=== PATIENT | female | born 1950 | race Caucasian/White ===

== ENCOUNTER 2022-05-11 12:16 | Emergency (ER) | payer MEDICARE, OTHER, SELFPAY ==
[2022-05-11 12:24] VITALS: BP 118/83; PULSE 91; RESP 16; TEMP 36.8; O2SAT 98
--- NOTE | 2022-05-11 12:44 | ED.NURSE ---
Difficult for marketing copywriter to assess regularity of patient's pulse in triage r/t tremors. EKG obtained, NSR with PACs rate 93.
--- NOTE | 2022-05-11 13:17 | ED.GENADULT ---
HPI - General Adult General Time Seen by Provider: 13:17 Date Seen: 05/11/22 Chief complaint: Fall/Minor Trauma Stated complaint: Fell, spasms since Time Seen by Provider: 05/11/22 13:05 Source: patient, family and RN notes reviewed Mode of arrival: ambulatory Limitations: no limitations History of Present Illness HPI narrative: Patient is a 71-year-old female that resides in the [facility] in the memory care unit. She reportedly has dementia, her family member whom I believe is her son that is with her is not sure if it is Lewy body or exactly what the underlying causative diagnosis is. She is on Aricept fluoxetine, Namenda, mirtazapine, Seroquel, trazodone amongst other medicines. They have noticed shaking today, increased falling. Her son reports that they thought she should come over and just get checked out. They have not noted any fevers or chills. She did not reportedly injure anything and has no complaints of pain. She is wanting to know why it is taking so long and is hungry and, wants to eat. She is notably having tremors in her upper extremities bilaterally. Her son is not aware of any movement disorder diagnosis, nothing like Parkinson's. Related Data Home Medications Medication Instructions Recorded Confirmed acetaminophen 500 mg capsule 1,000 mg PO TID PRN 05/11/22 05/11/22 aluminum-mag hydroxide-simethicone 15 ml PO Q4H 05/11/22 05/11/22 200 mg-200 mg-20 mg/5 mL oral susp (Advanced Antacid-Antigas) cetirizine 5 mg tablet 5 mg PO DAILY 05/11/22 05/11/22 clobetasol 0.05 % topical ointment 1 applic topical 05/11/22 05/11/22 donepezil 5 mg tablet 5 mg PO DAILY 05/11/22 05/11/22 fluoxetine 20 mg capsule 20 mg PO DAILY 05/11/22 05/11/22 memantine 10 mg tablet 10 mg PO DAILY 05/11/22 05/11/22 mirtazapine 45 mg tablet 45 mg PO HS 05/11/22 05/11/22 omeprazole 20 mg capsule,delayed 20 mg PO DAILY 05/11/22 05/11/22 release ondansetron 4 mg disintegrating 4 mg PO DAILY 05/11/22 05/11/22 tablet ondansetron HCl 4 mg tablet 4 mg PO DAILY 05/11/22 05/11/22 quetiapine 25 mg tablet 25 mg PO BID 05/11/22 05/11/22 sennosides 8.6 mg-docusate sodium 1 tab-cap PO BID PRN 05/11/22 05/11/22 50 mg tablet (Senna Plus) trazodone 50 mg tablet 50 mg PO HS 05/11/22 05/11/22 zinc oxide 13 % topical cream 1 applic topical DAILY PRN 05/11/22 05/11/22 (Desitin Rapid Relief) Previous Rx's Medication Instructions Recorded cephalexin 500 mg tablet 500 mg PO BID #10 tabs 05/11/22 Allergies Allergy/AdvReac Type Severity Reaction Status Date / Time No Known Drug Allergies Allergy Verified 05/11/22 12:30 Review of Systems Narrative: On questioning, she is negative for HEENT pulmonary cardiovascular GI muscular neurologic and psychiatric but does have some dementia. She seems to be reliable enough to tell me though that nothing is bothering her currently. PFSH PFS Social History Smoking Status: Never smoker Do you use any of these nicotine containing products: None Second hand tobacco smoke exposure: No How often do you have a drink containing alcohol: never How often do you have six or more drinks on one occasion: Never AUDIT-C Alcohol total score: 0 Non-prescribed substance use: denies use service: No Exam Const: Vital Signs, click to edit/add: Vital Signs - 24 hr 05/11/22 12:24 Temperature 98.2 F Pulse Rate [Pulse Oximeter] 91 Respiratory Rate 16 Blood Pressure [Ri ght Upper Arm] 118/83 Pulse Oximetry 98 Oxygen Delivery Me thod Room Air Documenting provider has reviewed patient's vital signs: yes Common normals: no apparent distress, oriented x3, no limitations, healthy appearing and alert (Sitting on the edge of the ER bed.) General appearance: cooperative, comfortable and well kempt HENMT: Common normals: normocephalic, head/scalp atraumatic, hearing grossly normal bilaterally, external ears normal, EAC's normal, TM's normal bilaterally, external nose normal, nasal mucous membranes and turbinates normal, moist oral mucous membranes, oropharynx normal, dentition normal and gingiva normal Head and scalp: normocephalic and atraumatic Nose: external nose normal and nasal mucous membranes and turbinates normal External ear: external ears normal External auditory canal: EAC's normal Tympanic membrane: TM's normal bilaterally Eye: Common normals: PERRL, EOMs intact bilaterally, conjunctivae normal and no scleral icterus Conjunctiva: conjunctiva(e) normal Pupil: PERRL Neck & C-Spine: Common normals: full ROM, no lymphadenopathy, supple and no meningeal signs Resp: Common normals: normal respiratory effort, no retractions, no use of accessory muscles and clear to auscultation bilaterally Auscultation: clear to auscultation bilaterally Cardio: Common normals: regular rate, regular rhythm, S1 normal heart sound, S2 normal heart sound, no gallops, no clicks and no murmurs Rate: regular rate Rhythm: regular rhythm Heart sounds: S1 normal and S2 normal GI: Common normals: Normal to inspection, nondistended, normoactive bowel sounds present, soft to palpation, non-tender and no hepatosplenomegaly Palpation: soft and no hepatosplenomegaly Neuro: Common normals: oriented x3, CN's II-XII intact bilaterally (Do have to ask her twice to follow commands), moves all extremities, no focal motor deficits and no sensory deficits noted Sensorium/orientation: alert (Sitting on the edge of the ER bed.) Meningeal signs: no meningeal signs Other: Has intermittent bilateral upper extremity resting tremors. I do not note any fasciculations. Do feel cogwheeling rigidity of both of her upper extremities. Do not note any head tremors at this time. Psych: Appearance: well kempt Course Course Hospital Course: Clinically, would aim seen looks to be a neurologic process. They are not representing any significant traumatic change. I have reviewed with her son that movement disorders can increase the risk of falls. Ultimately I think she needs a neurology evaluation. I did ask if she had ever carried a diagnosis of Lewy body dementia but he has no idea. The low blood pressure that was reported earlier it is not here and I really do not see any focal signs of infection but will get some lab work. He is not sure that she can provide a urinalysis as she did just urinate. We could always have her care facility obtain a urinalysis later if she cannot provide 1 here. Reevaluation(s) Reevaluation #1: Patient is wanting to get back to [facility]. Her CBC looks reassuring. Her basic metabolic panel as run on the I-STAT cartridge is without any concerning abnormality. Her electrolytes look good. There where that the urinalysis is not back but should come back abnormal we will certainly contact someone over there and guide therapy. We will allow her to go back to her assisted living at this time. Her son has no further questions. I do not think we need to do any neuro imaging due to trauma. 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 Time: 14:45 Reevaluation #2: Left nursing staff call the [facility] to notify them that we are going to initiate antibiotics for probable UTI. Will make sure urine culture gets done. Time: 15:37 Vital Signs Vital signs: Initial Vital Signs Temperature 98.2 F 05/11/22 12:24 Temperature Source Temporal Artery Scan 05/11/22 12:24 Pulse Rate 91 05/11/22 12:24 Respiratory Rate 16 05/11/22 12:24 Blood Pressure 118/83 05/11/22 12:24 Blood Pressure Mean 94 05/11/22 12:24 Blood Pressure Position Sitting 05/11/22 12:24 Pulse Oximetry 98 05/11/22 12:24 Oxygen Delivery Method 05/11/22 12:24 Vital Signs Temperature 98.2 F 05/11/22 12:24 Pulse Rate 91 05/11/22 12:24 Respiratory Rate 16 05/11/22 12:24 Blood Pressure 118/83 05/11/22 12:24 Pulse Oximetry 98 05/11/22 12:24 Oxygen Delivery Method 05/11/22 12:24 Temperature 98.2 F 05/11/22 12:24 Pulse Rate 91 05/11/22 12:24 Respiratory Rate 16 05/11/22 12:24 Blood Pressure 118/83 05/11/22 12:24 Pulse Oximetry 98 05/11/22 12:24 Oxygen Delivery Method 05/11/22 12:24 Medical Decision Making Lab Data Lab results reviewed: Yes I reviewed the patient's lab results Labs: Lab Results 05/11/22 05/11/22 05/11/22 Range/Units 13:58 13:58 14:29 WBC 8.93 (4.50-11.00) K/uL RBC 5.13 (4.00-5.20) m/uL Hgb 15.4 (12.0-16.0) gm/dL Hct 47.9 (33.0-51.0) % MCV 93 (80-100) fL MCH 30 (26-34) pg MCHC 32 (32-36) gm/dL RDW Coeff of [place] 11.8 (11.5-15.5) % Plt Count 170 (140-440) K/uL Neut % (Auto) 83.7 H (42.0-72.0) % Lymph % (Auto) 10.5 L (20-44) % [place] % (Auto) 4.9 (0.0-11.0) % Eos % (Auto) 0.4 (0.0-7.0) % Baso % (Auto) 0.3 (0.0-3.0) % Neut # (Auto) 7.50 H (1.7-7.0) K/uL Lymph # (Auto) 0.90 (0.90-2.90) K/uL [place] # (Auto) 0.40 (0.00-0.90) K/UL Eos # (Auto) 0.04 (0.00-0.50) K/uL Baso # (Auto) 0.03 (0.00-0.30) K/uL Abs Immat Gran (auto) 0.02 (0.00-0.30) K/uL Sodium 140 (135-149) mmol/L Potassium 4.1 (3.6-5.1) mmol/L Chloride 106 (96-114) mmol/L Carbon Dioxide 22 (20-32) mmol/L BUN 26 (7-30) mg/dL Creatinine 1.0 (0.5-1.5) mg/dL Estimated GFR 61 ml/min Glucose 97 (60-115) mg/dL Calcium 9.0 (8.4-10.6) mg/dL Total Bilirubin 0.4 (0.1-1.5) mg/dL AST 36 H (12-35) U/L ALT 17 (4-35) U/L Alkaline Phosphatase 170 H (40-150) U/L Total Protein 8.5 H (6.0-8.3) g/dL Albumin 4.4 (3.3-5.0) g/dL Urine Color Yellow (Yellow) Urine Appearance Cloudy A (Clear) Urine pH 6.5 (5.0-8.5) Ur Specific [place] 1.010 (1.000-1.030) Urine Protein Negative (Negative) Urine Glucose (UA) Negative (Negative) Urine Ketones Negative (Negative) Urine Blood 1+ A (Negative) Urine Nitrite Negative (Negative) Urine Bilirubin Negative (Negative) Urine Urobilinogen 0.2 (0.2-1.0) Ur Leukocyte Esterase 3+ A (Negative) Urine RBC 0-2 (0-2) Urine WBC 25-50 A (0-5) Ur Squamous Epith Cells None (None-Few) Urine Bacteria Many A (None) ECG Data Attestation: I personally reviewed and interpreted this ECG as follows: (Sinus rhythm, 93 beats per minute, Pac.) Prior ECG tracings: not available for review Critical Care Time Critical Care Time Critical Care Time: No Discharge Plan Discharge Clinical Impression: Resting tremor, Fall Condition: Stable Instructions: Fall Prevention for Older Adults (ED), Tremors (ED) Additional Instructions: I also noted some cogwheeling rigidity on physical examination. Thus with the resting tremors I am seeing and the rigidity on examination of upper extremities, do highly recommend consultation with neurology. You can go through your primary care provider to get a referral. We will contact you if there is anything concerning on the urinalysis. You will need to see Neurology for further workup of the tremors and concerns with the neurologic status. I do not believe this to be manifestations of any infectious etiology, believe there to be underlying neurologic changes of a probable movement disorder or some type of dementia where there can be these types of manifestations. However, should you develop a fever, have a specific symptom that is concerning for an infection, please seek re-evaluation Activity Level: Activity as Tolerated Prescriptions: New cephalexin 500 mg tablet 500 mg PO BID Qty: 10 0RF Rx Instructions: can sub covered equivalent or generic No Action acetaminophen 500 mg capsule 1,000 mg PO TID PRN Label Comments: Take 2 capsule by mouth three times a day as needed for pain , Max: 4g APAP/24hrs donepezil 5 mg tablet 5 mg PO DAILY cetirizine 5 mg tablet 5 mg PO DAILY clobetasol 0.05 % ointment 1 applic TOPICAL HS Desitin Rapid Relief 13 % cream 1 applic topical DAILY PRN fluoxetine 20 mg capsule 20 mg PO DAILY mirtazapine 45 mg tablet 45 mg PO HS alum-mag hydroxide-simeth [Advanced Antacid-Antigas] 200-200-20 mg/5 mL suspension 15 ml PO Q4H memantine 10 mg tablet 10 mg PO DAILY omeprazole 20 mg capsule,delayed release(DR/EC) 20 mg PO DAILY sennosides-docusate sodium [Senna Plus] 8.6-50 mg tablet 1 tab-cap PO BID PRN Label Comments: Take 1 tablet by mouth twice a day as needed quetiapine 25 mg tablet 25 mg PO BID Label Comments: takes 25mg BID and 25mg PO PRN anxiety trazodone 50 mg tablet 50 mg PO HS ondansetron HCl 4 mg tablet 4 mg PO DAILY ondansetron 4 mg tablet,disintegrating 4 mg PO DAILY Label Comments: 4mg po Daily at breakfast and 4mg po prn nausea Stand Alone Forms: [facility] Info Instructions
[2022-05-11 14:18] LABS: Basophils Absolute Auto 0.03 K/uL (0.00-0.30); Basophils Percent Auto 0.3 % (0.0-3.0); Eosinophils Absolute Auto 0.04 K/uL (0.00-0.50); Eosinophils Percent Auto 0.4 % (0.0-7.0); Hematocrit 47.9 % (33.0-51.0); Hemoglobin* 15.4 gm/dL (12.0-16.0); Immature Granulocytes Abs Auto 0.02 K/uL (0.00-0.30); Lymphocytes Percent Auto 10.5 % (20-44); Mean Corpuscular HGB Conc 32 gm/dL (32-36); Mean Corpuscular Hemoglobin 30 pg (26-34); Mean Corpuscular Volume 93 fL (80-100); Monocytes Percent Auto 4.9 % (0.0-11.0); Neutrophils Percent Auto 83.7 % (42.0-72.0); Platelet Count* 170 K/uL (140-440); RDW Coefficient of Variation % 11.8 % (11.5-15.5); Red Blood Count 5.13 m/uL (4.00-5.20); White Blood Count* 8.93 K/uL (4.50-11.00)
[2022-05-11 14:20] LABS: Slide Review Reflex No
[2022-05-11 14:40] LABS: Appearance Urine Cloudy (Clear); Bilirubin Urine Negative (Negative); Blood Urine 1+ (Negative); Color Urine Yellow (Yellow); Glucose Urine Negative (Negative); Ketones Urine Negative (Negative); Leukocyte Esterase Urine 3+ (Negative); Nitrite Urine Negative (Negative); Protein Urine Negative (Negative); Urobilinogen Urine 0.2 (0.2-1.0); pH Urine 6.5 (5.0-8.5)
[2022-05-11 15:08] LABS: Bacteria Urine Many; RBC Urine 0-2 (0-2); WBC Urine 25-50 (0-5)
[2022-05-11 16:28] LABS: Albumin* 4.4 g/dL (3.3-5.0); Chloride* 106 mmol/L (96-114); Sodium* 140 mmol/L (135-149)
[2022-05-11 16:29] LABS: Potassium* 4.1 mmol/L (3.6-5.1)
[2022-05-11 16:31] LABS: Alkaline Phosphatase* 170 U/L (40-150); Aspartate Amino Transferase* 36 U/L (12-35); Bilirubin Total* 0.4 mg/dL (0.1-1.5); Blood Urea Nitrogen* 26 mg/dL (7-30); Carbon Dioxide* 22 mmol/L (20-32); Estimated Glomerular Filt Rate 61 ml/min; Total Protein* 8.5 g/dL (6.0-8.3)
[2022-05-11 16:32] LABS: Alanine Aminotransferase* 17 U/L (4-35); Glucose* 97 mg/dL (60-115)
== END 2022-05-11 15:03 | disposition home or self-care (01) ==
PROVIDERS: Emergency Provider Family Medicine
DX: R25.1 Tremor, unspecified (principal); N39.0 Urinary tract infection, site not specified; B96.1 Klebsiella pneumoniae [K. pneumoniae] as the cause of diseases classified elsewhere; Z91.81 History of falling
CPT/HCPCS: 36415; 80053; 81001; 85025; 87086; 87186; 93005; 99284

== ENCOUNTER 2022-08-01 09:40 | Outpatient (REF) | payer MEDICARE, OTHER, SELFPAY ==
[2022-08-01 10:21] LABS: Chloride* 108 mmol/L (96-114)
[2022-08-01 10:22] LABS: Sodium* 142 mmol/L (135-149)
[2022-08-01 10:24] LABS: Carbon Dioxide* 27 mmol/L (20-32); Creatinine* 0.9 mg/dL (0.5-1.5); Estimated Glomerular Filt Rate 69 ml/min
[2022-08-01 10:25] LABS: Blood Urea Nitrogen* 20 mg/dL (7-30); Calcium* 8.7 mg/dL (8.4-10.6); Glucose* 112 mg/dL (60-115)
== END 2022-08-01 09:41 | disposition home or self-care (01) ==
LOC: NPINS 09:40
PROVIDERS: PCP Family Medicine; Visit Provider Family Medicine
DX: N18.2 Chronic kidney disease, stage 2 (mild) (principal)
CPT/HCPCS: 80048

== ENCOUNTER 2022-10-24 13:44 | Outpatient (CLI) | payer MEDICARE, OTHER, SELFPAY ==
--- NOTE | 2022-10-24 14:00 | CRLHL7_ITS ---
For Patients: As a result of the Century Cures Act, medical imaging exams and procedure reports are released immediately into your electronic medical record. You may view this report before your referring provider. If you have questions, please contact your health care provider. INDICATION: Seizure. TECHNIQUE: Noncontrast CT images acquired through the brain. COMPARISON: None. FINDINGS: Prominence of the ventricles and sulci compatible with mild diffuse cerebral volume loss. No mass effect or midline shift. The hurd-white differentiation is maintained. No acute intracranial hemorrhage or pathologic extra-axial fluid collection. Scattered hypoattenuation in the supratentorial white matter, suggestive of mild chronic microvascular ischemic changes. The globes are symmetric. The calvarium is intact. Hyperostosis frontalis interna. [id number] left maxillary sinus mucosal thickening. There is left maxillary sinus mucoperiosteal wall thickening, compatible with sequela of chronic sinusitis. The mastoid air cells are clear. IMPRESSION: No acute intracranial hemorrhage or mass effect. Please note that all CT scans at this facility use dose modulation, iterative reconstruction, and/or weight-based dosing when appropriate to reduce radiation dose to as low as reasonably achievable. Dictated by Zane Donato MD @ 10/24/2022 3:10:57 PM (Electronically Signed)
== END 2022-10-24 13:45 | disposition home or self-care (01) ==
LOC: CT 13:52
PROVIDERS: PCP Family Medicine; Visit Provider Psychiatry & Neurology Neurology
DX: R56.9 Unspecified convulsions (principal); G25.3 Myoclonus
CPT/HCPCS: 70450

== ENCOUNTER 2022-11-15 15:34 | Outpatient (CLI) | payer MEDICARE, OTHER, SELFPAY | END 2022-11-15 15:35 | disposition home or self-care (01) | PROVIDERS: PCP Family Medicine; Visit Provider Family Medicine | DX: R41.82 Altered mental status, unspecified (principal); F03.90 Unspecified dementia, unspecified severity, without behavioral disturbance, psychotic disturbance, mood disturbance, and anxiety | CPT/HCPCS: A0425; A0429 ==

== ENCOUNTER 2022-11-15 15:56 | Inpatient (IN) | payer MEDICARE, OTHER, SELFPAY ==
[2022-11-15 15:59] VITALS: BP 111/74; PULSE 82; RESP 18; TEMP 37.3; O2SAT 98; BMI 24.2
--- NOTE | 2022-11-15 16:12 | CRLHL7_ITS ---
For Patients: As a result of the Century Cures Act, medical imaging exams and procedure reports are released immediately into your electronic medical record. You may view this report before your referring provider. If you have questions, please contact your health care provider. Indication: Trauma, fall. Technique: AP view of the pelvis. Comparison: None Findings/Impression: Suboptimal evaluation due to positioning. There is subtle cortical irregularity at the left femoral neck, worrisome for a minimally displaced fracture. Bilateral femoral acetabular joint alignments are anatomic. Punctate metallic fragment is noted within the mid pelvis. Dictated by Peyton Mathews MD @ 11/15/2022 5:57:26 PM (Electronically Signed)
--- NOTE | 2022-11-15 16:12 | CRLHL7_ITS ---
For Patients: As a result of the Cures Act, medical imaging exams and procedure reports are released immediately into your electronic medical record. You may view this report before your referring provider. If you have questions, please contact your health care provider. INDICATION: Fall. TECHNIQUE: Chest 1 views. COMPARISON: None. FINDINGS: Cardiovasculature and mediastinum: Heart size and vasculature are normal in caliber and appearance. Lungs and pleural spaces: Lungs are clear except for mild left basilar atelectasis or scarring. No sign of infiltrate or mass. No sign of pleural effusion. No pneumothorax. Bones and soft tissues: No significant findings. IMPRESSION: No acute or significant findings. Dictated by David Montenegro MD @ 11/15/2022 5:57:10 PM (Electronically Signed)
--- NOTE | 2022-11-15 16:12 | CRLHL7_ITS ---
For Patients: As a result of the Century Cures Act, medical imaging exams and procedure reports are released immediately into your electronic medical record. You may view this report before your referring provider. If you have questions, please contact your health care provider. INDICATION: Fall.. TECHNIQUE: CT head without contrast. COMPARISON: None. FINDINGS: CSF spaces: Within normal limits for age. Brain parenchyma and extra-axial spaces: The hurd-white differentiation is normal. No sign of mass, hemorrhage, or midline shift. No extra-axial fluid collection. Skull base and calvarium: The visualized paranasal sinuses and mastoid air cells demonstrate no acute or significant findings. The visualized orbits are grossly unremarkable. No skull fractures. IMPRESSION: No acute intracranial process identified. Please note that all CT scans at this facility use dose modulation, iterative reconstruction, and/or weight-based dosing when appropriate to reduce radiation dose to as low as reasonably achievable. Dictated by Meliton Huynh MD @ 11/15/2022 5:59:59 PM (Electronically Signed)
--- NOTE | 2022-11-15 16:19 | ED_ITS ---
HPI - General Adult General Time Seen by Provider: 16:19 Date Seen: 11/15/22 Chief complaint: Weakness Stated complaint: Ill Time Seen by Provider: 11/15/22 16:02 Source: EMS Mode of arrival: EMS Limitations: altered mental status and physical limitation History of Present Illness HPI narrative: Patient is a 72-year-old female with skew history of significant dementia who lives at Memory Care at [facility]. She apparently fell yesterday and since and has not been weight-bearing, there has been no noted bruising or range of motion deficit patient has been appearing more weak today. There is COVID in her wing of the unit. She has a polst, DNR DNI order. Family wishes limited medical care but assessment and treatment if needed. Apparently the cameron maria isabel wished her to be assessed in the hospital today. She has not had a cough, not had a fever, no vital sign abnormality. The patient is fairly noncommunicative due to her dementia by chart history. Related Data Home Medications Medication Instructions Recorded Confirmed acetaminophen 500 mg capsule 1,000 mg PO TID PRN 05/11/22 11/15/22 aluminum-mag hydroxide-simethicone 15 ml PO Q4H PRN 05/11/22 11/16/22 200 mg-200 mg-20 mg/5 mL oral susp (Advanced Antacid-Antigas) cetirizine 5 mg tablet 5 mg PO DAILY 05/11/22 11/15/22 clobetasol 0.05 % topical ointment 1 applic topical HS 05/11/22 11/15/22 donepezil 5 mg tablet 5 mg PO HS 05/11/22 11/15/22 fluoxetine 20 mg capsule 20 mg PO DAILY 05/11/22 11/15/22 memantine 10 mg tablet 10 mg PO DAILY 05/11/22 11/15/22 mirtazapine 45 mg tablet 45 mg PO HS 05/11/22 11/15/22 omeprazole 20 mg capsule,delayed 20 mg PO BID 05/11/22 11/16/22 release ondansetron 4 mg disintegrating 4 mg PO DAILY 05/11/22 11/15/22 tablet sennosides 8.6 mg-docusate sodium 1 tab-cap PO BID PRN 05/11/22 11/15/22 50 mg tablet (Senna Plus) trazodone 50 mg tablet 25 mg PO HS 05/11/22 11/16/22 zinc oxide 13 % topical cream 1 applic topical BID PRN 05/11/22 11/16/22 (Desitin Rapid Relief) divalproex 250 mg tablet,extended 500 mg PO HS 11/15/22 11/15/22 release 24 hr quetiapine 25 mg tablet 25 mg PO QHS 11/16/22 11/16/22 quetiapine 25 mg tablet 37.5 mg PO DAILY 11/16/22 11/16/22 Allergies Allergy/AdvReac Type Severity Reaction Status Date / Time No Known Drug Allergies Allergy Verified 11/15/22 16:04 Review of Systems Status of ROS: Reports: unobtainable due to medical condition [facility] Medical History (Updated 11/15/22 @ 21:19 by Rios Ríos MD) Alzheimer's dementia with agitation Anxiety Diaper dermatitis Frequent falls GERD (gastroesophageal reflux disease) Lichen sclerosus et atrophicus Mild asthma Rheumatic mitral valve disease Seizure disorder Urticaria Social History (Updated 11/15/22 @ 21:11 by Rios Ríos MD) Narrative: She apparently has not had any previous surgery. There is no history of problems with anesthesia, bleeding or clotting disorder. She lives in the dementia unit at [facility]. She has a daughter, Elizabeth, and a son, Shen, for making decisions. Code status is DNR DNI. She does not smoke. She does not drink alcohol. 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 Highest level of school completed/degree received: don't know Smoking Status: Never smoker Do you use any of these nicotine containing products: None Second hand tobacco smoke exposure: No How often do you have a drink containing alcohol: never How often do you have six or more drinks on one occasion: Never AUDIT-C Alcohol total score: 0 Non-prescribed substance use: denies use service: No Exam Narrative: Exam Narrative: Objective: Patient's vital signs look largely unremarkable, she appears noncyanotic She does not respond verbally, she does Mater some words under her breath. She does not appear in distress. HEENT is unremarkable no facial asymmetry Neck is nontender lungs are clear next heart rhythm regular 2/6 systolic murmur Abdomen benign soft Pelvis stable Able to flex extend her hips without difficulty distal CMS is unremarkable no lower extremities although she does not really respond to asking her to move her legs but she is able to withdraw them and move them. They got good distal CMS as mention. No obvious bruising noted Const: Vital Signs, click to edit/add: Vital Signs - 24 hr 11/15/22 15:59 11/15/22 19:59 Temperature 99.2 F Pulse Rate [Pulse Oximeter] 82 87 Respiratory Rate 18 18 Blood Pressure [Le ft Upper Arm] 111/74 113/73 Pulse Oximetry 98 95 Oxygen Delivery Me thod Room Air Room Air Course Vital Signs Vital signs: Initial Vital Signs Temperature 99.2 F 11/15/22 15:59 Temperature Source Temporal Artery Scan 11/15/22 15:59 Pulse Rate 82 11/15/22 15:59 Pulse Strength 3+ Normal 11/15/22 15:59 Respiratory Rate 18 11/15/22 15:59 Blood Pressure 111/74 11/15/22 15:59 Blood Pressure Mean 86 11/15/22 15:59 Pulse Oximetry 98 11/15/22 15:59 Oxygen Delivery Method 11/15/22 15:59 Vital Signs Temperature 99.2 F 11/15/22 15:59 Pulse Rate 82 11/15/22 15:59 Respiratory Rate 18 11/15/22 15:59 Blood Pressure 111/74 11/15/22 15:59 Pulse Oximetry 98 11/15/22 15:59 Oxygen Delivery Method 11/15/22 15:59 Temperature 98.2 F 11/16/22 03:00 Pulse Rate 76 11/16/22 03:00 Respiratory Rate 18 11/16/22 03:00 Blood Pressure 120/70 11/16/22 03:00 Pulse Oximetry 94 11/16/22 03:00 Oxygen Delivery Method 11/16/22 03:00 Oxygen Flow Rate 2 11/16/22 03:00 Medical Decision Making MDM Narrative Medical decision making narrative: The patient is a 72 year white female with severe dementia currently residing in the memory care unit [facility]. She apparently had a fall yesterday and has been nonambulatory today which she typically is. I think at this point to be reasonable to do x-rays of her pelvis, CT scan of her head, x-ray of her chest, urinalysis, laboratory studies, give her some IV fluid. Disposition pending findings above. With her dementia status it is very difficult to ascertain pain or localizing issues. But I think we can do the above-mentioned workup and that will help guide our treatment. Addendum patient's EKG shows sinus rhythm sinus arrhythmia frequent PVCs nonspecific ST changes, some artifact. The patient has a head CT and chest x-ra y there are largely unremarkable. Pelvis x-ray shows some question of cortical irregularity in the femoral neck by my read, CT scan of the left hip is ordered. Her daughter reports that she tried to move her back into bed earlier in the week 2 days ago and had noted pain in her hip area. She has had multiple falls at the [facility] due to her dementia likely. Will review the CT of the hip. Patient might need admission for hip pinning and orthopedic consult. Addendum: The patient does have an CTA subcapital acute nondisplaced fracture in the left femoral neck. Should be admitted the hospital ortho consult her daughter was consulted and wished to have this assessed. Will discuss with hospitalist Dr. Ríos and also call orthopedics. Addendum: Orthopedics was consulted and they will likely add the patient to the schedule tomorrow, depending on what the hospitalist workup reveals. At this point she is generally quite healthy other than her dementia issues. She does appear to be on any blood thinner. Lab Data Labs: Lab Results 11/15/22 11/15/22 11/15/22 Range/Units 16:04 16:12 16:25 WBC (4.50-11.00) K/uL RBC (4.00-5.20) m/uL Hgb (12.0-16.0) gm/dL Hct (33.0-51.0) % MCV (80-100) fL MCH (26-34) pg MCHC (32-36) gm/dL RDW Coeff of Humble (11.5-15.5) % Plt Count (140-440) K/uL Neut % (Auto) (42.0-72.0) % Lymph % (Auto) (20-44) % Murray % (Auto) (0.0-11.0) % Eos % (Auto) (0.0-7.0) % Baso % (Auto) (0.0-3.0) % Neut # (Auto) (1.7-7.0) K/uL Lymph # (Auto) (0.90-2.90) K/uL Murray # (Auto) (0.00-0.90) K/UL Eos # (Auto) (0.00-0.50) K/uL Baso # (Auto) (0.00-0.30) K/uL Sodium 140 (135-149) mmol/L Potassium 4.0 (3.6-5.1) mmol/L Chloride 108 (96-114) mmol/L Carbon Dioxide 26 (20-32) mmol/L BUN 33 H (7-30) mg/dL Creatinine 0.9 (0.5-1.5) mg/dL Estimated Creat Clear 48.30 Estimated GFR 68 ml/min Glucose 107 (60-115) mg/dL Calcium 8.5 (8.4-10.6) mg/dL Total Bilirubin 0.8 (0.1-1.5) mg/dL Direct Bilirubin 0.1 (0.0-0.5) mg/dL AST 44 H (12-35) U/L ALT 64 H (4-35) U/L Alkaline Phosphatase 94 (40-150) U/L C-Reactive Protein 5.2 H (0.5-1.0) mg/dL Total Protein 7.3 (6.0-8.3) g/dL Albumin 3.8 (3.3-5.0) g/dL Amylase 55 (18-89) U/L Urine Color Yellow (Yellow) Urine Appearance Clear (Clear) Urine pH 7.0 (5.0-8.5) Ur Specific Raymond 1.020 (1.000-1.030) Urine Protein 1+ A (Negative) Urine Glucose (UA) Negative (Negative) Urine Ketones 3+ A (Negative) Urine Blood Trace-intact A (Negative) Urine Nitrite Negative (Negative) Urine Bilirubin 1+ A (Negative) Urine Urobilinogen 4.0 A (0.2-1.0) Ur Leukocyte Esterase Trace A (Negative) Urine RBC 2-5 A (0-2) Urine WBC 2-5 (0-5) Ur Squamous Epith Cells Few (None-Few) Urine Bacteria None (None) SARS-CoV-2 (PCR) Cancelled Influenza Type A (PCR) (Negative) Influenza Type B (PCR) (Negative) RSV (PCR) (Negative) 11/15/22 11/15/22 Range/Units 16:25 17:45 WBC 9.25 (4.50-11.00) K/uL RBC 3.96 L (4.00-5.20) m/uL Hgb 12.4 (12.0-16.0) gm/dL Hct 37.8 (33.0-51.0) % MCV 96 (80-100) fL MCH 31 (26-34) pg MCHC 33 (32-36) gm/dL RDW Coeff of Humble 13.0 (11.5-15.5) % Plt Count 147 (140-440) K/uL Neut % (Auto) 75.9 H (42.0-72.0) % Lymph % (Auto) 12.5 L (20-44) % Murray % (Auto) 8.0 (0.0-11.0) % Eos % (Auto) 3.1 (0.0-7.0) % Baso % (Auto) 0.3 (0.0-3.0) % Neut # (Auto) 7.00 (1.7-7.0) K/uL Lymph # (Auto) 1.20 (0.90-2.90) K/uL Murray # (Auto) 0.70 (0.00-0.90) K/UL Eos # (Auto) 0.29 (0.00-0.50) K/uL Baso # (Auto) 0.03 (0.00-0.30) K/uL Sodium (135-149) mmol/L Potassium (3.6-5.1) mmol/L Chloride (96-114) mmol/L Carbon Dioxide (20-32) mmol/L BUN (7-30) mg/dL Creatinine (0.5-1.5) mg/dL Estimated Creat Clear Estimated GFR ml/min Glucose (60-115) mg/dL Calcium (8.4-10.6) mg/dL Total Bilirubin (0.1-1.5) mg/dL Direct Bilirubin (0.0-0.5) mg/dL AST (12-35) U/L ALT (4-35) U/L Alkaline Phosphatase (40-150) U/L C-Reactive Protein (0.5-1.0) mg/dL Total Protein (6.0-8.3) g/dL Albumin (3.3-5.0) g/dL Amylase (18-89) U/L Urine Color (Yellow) Urine Appearance (Clear) Urine pH (5.0-8.5) Ur Specific Raymond (1.000-1.030) Urine Protein (Negative) Urine Glucose (UA) (Negative) Urine Ketones (Negative) Urine Blood (Negative) Urine Nitrite (Negative) Urine Bilirubin (Negative) Urine Urobilinogen (0.2-1.0) Ur Leukocyte Esterase (Negative) Urine RBC (0-2) Urine WBC (0-5) Ur Squamous Epith Cells (None-Few) Urine Bacteria (None) SARS-CoV-2 (PCR) Negative SARS-CoV-2 Influenza Type A (PCR) Negative PCR FLU A (Negative) Influenza Type B (PCR) Negative PCR FLU B (Negative) RSV (PCR) Negative PCR RSV (Negative) Discharge Plan Discharge Clinical Impression: Weakness, Closed fracture of left hip Patient Disposition: Admitted As Inpatient Condition: Stable
[2022-11-15] MEDS: 0.9 % SODIUM CHLORIDE 500 ML 500 ML IV (16:37)
[2022-11-15 16:50] LABS: Appearance Urine Clear (Clear); Bilirubin Urine 1+ (Negative); Blood Urine Trace-intact (Negative); Color Urine Yellow (Yellow); Glucose Urine Negative (Negative); Ketones Urine 3+ (Negative); Leukocyte Esterase Urine Trace (Negative); Nitrite Urine Negative (Negative); Protein Urine 1+ (Negative)
[2022-11-15 16:56] LABS: Basophils Absolute Auto 0.03 K/uL (0.00-0.30); Basophils Percent Auto 0.3 % (0.0-3.0); Eosinophils Absolute Auto 0.29 K/uL (0.00-0.50); Eosinophils Percent Auto 3.1 % (0.0-7.0); Hematocrit 37.8 % (33.0-51.0); Hemoglobin* 12.4 gm/dL (12.0-16.0); Immature Granulocytes Abs Auto 0.02 K/uL (0.00-0.30); Immature Granulocytes Pct Auto 0.2 %; Lymphocytes Percent Auto 12.5 % (20-44); Mean Corpuscular HGB Conc 33 gm/dL (32-36); Mean Corpuscular Hemoglobin 31 pg (26-34); Mean Corpuscular Volume 96 fL (80-100); Neutrophils Percent Auto 75.9 % (42.0-72.0); Platelet Count* 147 K/uL (140-440); Red Blood Count 3.96 m/uL (4.00-5.20); White Blood Count* 9.25 K/uL (4.50-11.00)
[2022-11-15 17:01] LABS: Slide Review Reflex No
[2022-11-15 17:04] LABS: Squamous Epithelial Cell Urine Few (None-Few)
[2022-11-15 17:15] LABS: Chloride* 108 mmol/L (96-114)
[2022-11-15 17:16] LABS: Albumin* 3.8 g/dL (3.3-5.0); Sodium* 140 mmol/L (135-149)
[2022-11-15 17:19] LABS: Alkaline Phosphatase* 94 U/L (40-150); Amylase* 55 U/L (18-89); Aspartate Amino Transferase* 44 U/L (12-35); Bilirubin Direct* 0.1 mg/dL (0.0-0.5); Bilirubin Total* 0.8 mg/dL (0.1-1.5); Blood Urea Nitrogen* 33 mg/dL (7-30); Carbon Dioxide* 26 mmol/L (20-32); Creatinine* 0.9 mg/dL (0.5-1.5); Estimated Glomerular Filt Rate 68 ml/min; Glucose* 107 mg/dL (60-115); Total Protein* 7.3 g/dL (6.0-8.3)
[2022-11-15 17:20] LABS: Alanine Aminotransferase* 64 U/L (4-35); Calcium* 8.5 mg/dL (8.4-10.6)
[2022-11-15 17:22] LABS: C Reactive Protein* 5.2 mg/dL (0.5-1.0)
--- NOTE | 2022-11-15 17:36 | CRLHL7_ITS ---
For Patients: As a result of the Cures Act, medical imaging exams and procedure reports are released immediately into your electronic medical record. You may view this report before your referring provider. If you have questions, please contact your health care provider. INDICATION: Left hip pain. TECHNIQUE: CT pelvis without contrast. COMPARISON: None. FINDINGS: Bones: A nondisplaced fractures present in the subcapital region of the left femoral neck. This may be acute or subacute. No other osseous abnormality. Joints: Moderate arthritic changes in the hip joint. Soft tissues: Unremarkable. IMPRESSION: Acute or subacute nondisplaced fracture in the subcapital region of the left femoral neck. Please note that all CT scans at this facility use dose modulation, iterative reconstruction, and/or weight-based dosing when appropriate to reduce radiation dose to as low as reasonably achievable. Dictated by David Montenegro MD @ 11/15/2022 7:07:42 PM (Electronically Signed)
--- NOTE | 2022-11-15 17:42 | CRLHL7_ITS ---
For Patients: As a result of the Century Cures Act, medical imaging exams and procedure reports are released immediately into your electronic medical record. You may view this report before your referring provider. If you have questions, please contact your health care provider. INDICATION: Abnormal laboratory tests. TECHNIQUE: CT abdomen and pelvis without contrast. COMPARISON: None. FINDINGS: Lower chest: Moderate bibasilar atelectasis or scarring. Liver: Normal in size and attenuation. No suspicious masses. Gallbladder and bile ducts: No stones or inflammation. No biliary dilatation. Pancreas: Unremarkable. No mass or inflammation. Spleen: Normal in size. No masses. Adrenal glands: Normal in size. No nodules. Kidneys: Normal in size. No suspicious masses, stones, or hydronephrosis. GI tract: Small focal metallic object is within the sigmoid colon. Otherwise unremarkable GI tract. Normal in caliber. No sign of mass or inflammation. Normal appendix. Vasculature: Abdominal aorta is normal in caliber. Lymph nodes: No lymphadenopathy. Peritoneum/Abdominal Wall: Unremarkable. No sign of mass or infiltration. No free air or significant free fluid. Pelvis: Altman catheter within a decompressed bladder. Pelvic structures otherwise unremarkable. Bones: Unremarkable for age. IMPRESSION: 1. Moderate bibasilar scarring or atelectasis in the lung bases. 2. No acute or significant findings in the abdomen or pelvis. Please note that all CT scans at this facility use dose modulation, iterative reconstruction, and/or weight-based dosing when appropriate to reduce radiation dose to as low as reasonably achievable. Dictated by David Montenegro MD @ 11/15/2022 7:03:23 PM (Electronically Signed)
[2022-11-15 18:41] LABS: PCR FLU A Negative PCR FLU A (Negative); PCR FLU B Negative PCR FLU B (Negative); PCR RSV Negative PCR RSV (Negative)
[2022-11-15 18:46] LABS: SARS PCR* Negative SARS-CoV-2 (Negative)
[2022-11-15 19:59] VITALS: BP 113/73; PULSE 87; RESP 18; O2SAT 95
[2022-11-15 20:22] VITALS: BP 102/74; PULSE 80; RESP 18; TEMP 37.1; O2SAT 93; BMI 24.2
[2022-11-15 21:02] VITALS: RESP 18; O2SAT 93
--- NOTE | 2022-11-15 21:04 | PM.IMHP1 ---
Hospitalist- H&P: HPI History of Present Illness Date Seen: 11/15/22 Chief complaint: Ill Narrative: Jessica Angel is a 72 year old female with advanced dementia who fell yesterday and has not been walking since that time. She has been exposed to COVID but has no obvious symptoms and a negative COVID test. Patient is unable to give any history due to dementia. I did obtain some additional information from her daughter Elizabeth by phone. Patient has relatively rapidly progressive dementia. She is still ambulatory until yesterday. She has been having frequent falls and possibly spells for she just falls to the floor. Her neurologist ordered an EEG in August. That apparently showed some possible seizure activity and so she was started on Depakote. Apparently no one has witnessed a generalized tonic-clonic seizure. She also has tremors and shaking which has been getting worse. Review of Systems Narrative: Unable to obtain due to dementia. Daughter is not aware of any new illness or other injury except for the fall yesterday [facility] Medical History (Updated 11/15/22 @ 21:19 by Rios Ríos MD) Alzheimer's dementia with agitation Anxiety Diaper dermatitis Frequent falls GERD (gastroesophageal reflux disease) Lichen sclerosus et atrophicus Mild asthma Rheumatic mitral valve disease Seizure disorder Urticaria Social History (Updated 11/15/22 @ 21:11 by Rios Ríos MD) Narrative: She apparently has not had any previous surgery. There is no history of problems with anesthesia, bleeding or clotting disorder. She lives in the dementia unit at [facility]. She has a daughter, Elizabeth, and a son, Shen, for making decisions. Code status is DNR DNI. She does not smoke. She does not drink alcohol. 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 Smoking Status: Never smoker Do you use any of these nicotine containing products: None Second hand tobacco smoke exposure: No How often do you have a drink containing alcohol: never How often do you have six or more drinks on one occasion: Never AUDIT-C Alcohol total score: 0 Non-prescribed substance use: denies use service: No Meds Home Medications and Allergies Home Medications Medication Instructions Recorded Confirmed Type acetaminophen 500 mg capsule 1,000 mg PO TID PRN 05/11/22 11/15/22 History aluminum-mag hydroxide-simethicone 15 ml PO Q4H 05/11/22 11/15/22 History 200 mg-200 mg-20 mg/5 mL oral susp (Advanced Antacid-Antigas) cetirizine 5 mg tablet 5 mg PO DAILY 05/11/22 11/15/22 History clobetasol 0.05 % topical ointment 1 applic topical HS 05/11/22 11/15/22 History donepezil 5 mg tablet 5 mg PO HS 05/11/22 11/15/22 History fluoxetine 20 mg capsule 20 mg PO DAILY 05/11/22 11/15/22 History memantine 10 mg tablet 10 mg PO DAILY 05/11/22 11/15/22 History mirtazapine 45 mg tablet 45 mg PO HS 05/11/22 11/15/22 History omeprazole 20 mg capsule,delayed 20 mg PO DAILY 05/11/22 11/15/22 History release ondansetron 4 mg disintegrating 4 mg PO DAILY 05/11/22 11/15/22 History tablet ondansetron HCl 4 mg tablet 4 mg PO DAILY 05/11/22 11/15/22 History quetiapine 25 mg tablet 25 mg PO BID 05/11/22 11/15/22 History sennosides 8.6 mg-docusate sodium 1 tab-cap PO BID PRN 05/11/22 11/15/22 History 50 mg tablet (Senna Plus) trazodone 50 mg tablet 50 mg PO HS 05/11/22 11/15/22 History zinc oxide 13 % topical cream 1 applic topical DAILY PRN 05/11/22 11/15/22 History (Desitin Rapid Relief) divalproex 250 mg tablet,extended 500 mg PO HS 11/15/22 11/15/22 History release 24 hr Allergies Allergy/AdvReac Type Severity Reaction Status Date / Time No Known Drug Allergies Allergy Verified 11/15/22 16:04 Exam Narrative: Exam Narrative: She is lying on the gurney sleeping. She does not arouse to voice. She minimally arouses to touch. She is nonverbal. She does not follow commands. Head is without obvious trauma. Eyes are normal. Pupils are equal round and reactive to light. Oropharynx with dry mucous membrane. Neck is without obvious tenderness. Respirations are clear to auscultation. Cardiovascular: S1, S2, regular rate and rhythm. No murmur gallop or rub. Abdomen: Bowel sounds active. Abdomen is soft mild diffuse tenderness. External genitalia normal. Altman catheter in place. Bilateral hips appear relatively normal. Bilateral lower extremities without obvious deformity. She has intact pedal pulses. She does not cooperate with strength testing. She does have myoclonic jerks when I manipulate her bilateral feet and ankle. They had jerks are more prominent on the right than the left. Occasionally exhibits a tremor when I move her feet. No edema. Const: Vital Signs, click to edit/add: Vital Signs - 24 hr 11/15/22 15:59 11/15/22 19:59 11/15/22 21:02 Temperature 99.2 F Pulse Rate [Pulse Oximeter] 82 87 Respiratory Rate 18 18 18 Blood Pressure [Le ft Upper Arm] 111/74 113/73 Pulse Oximetry 98 95 93 Oxygen Delivery Me thod Room Air Room Air Nasal Cannula Oxygen Flow Rate 2 Documenting provider has reviewed patient's vital signs: yes Hospitalist - H&P: Result Labs Labs: Short CBC 11/15/22 Range/Units 16:25 WBC 9.25 (4.50-11.00) K/uL Hgb 12.4 (12.0-16.0) gm/dL Hct 37.8 (33.0-51.0) % Plt Count 147 (140-440) K/uL BMP 11/15/22 16:25 Sodium 140 Potassium 4.0 Chloride 108 Carbon Dioxide 26 BUN 33 H Creatinine 0.9 Glucose 107 Calcium 8.5 Liver Function 11/15/22 Range/Units 16:25 Total Bilirubin 0.8 (0.1-1.5) mg/dL Direct Bilirubin 0.1 (0.0-0.5) mg/dL AST 44 H (12-35) U/L ALT 64 H (4-35) U/L Alkaline Phosphatase 94 (40-150) U/L Albumin 3.8 (3.3-5.0) g/dL Urine 11/15/22 Range/Units 16:12 Urine Color Yellow (Yellow) Urine Appearance Clear (Clear) Urine pH 7.0 (5.0-8.5) Ur Specific [place] 1.020 (1.000-1.030) Urine Protein 1+ A (Negative) Urine Glucose (UA) Negative (Negative) Imaging CT scan - abdomen: Radiologist's impression: INDICATION: Abnormal laboratory tests. TECHNIQUE: CT abdomen and pelvis without contrast. COMPARISON: None. FINDINGS: Lower chest: Moderate bibasilar atelectasis or scarring. Liver: Normal in size and attenuation. No suspicious masses. Gallbladder and bile ducts: No stones or inflammation. No biliary dilatation. Pancreas: Unremarkable. No mass or inflammation. Spleen: Normal in size. No masses. Adrenal glands: Normal in size. No nodules. Kidneys: Normal in size. No suspicious masses, stones, or hydronephrosis. GI tract: Small focal metallic object is within the sigmoid colon. Otherwise unremarkable GI tract. Normal in caliber. No sign of mass or inflammation. Normal appendix. Vasculature: Abdominal aorta is normal in caliber. Lymph nodes: No lymphadenopathy. Peritoneum/Abdominal Wall: Unremarkable. No sign of mass or infiltration. No free air or significant free fluid. Pelvis: Altman catheter within a decompressed bladder. Pelvic structures otherwise unremarkable. Bones: Unremarkable for age. IMPRESSION: 1. Moderate bibasilar scarring or atelectasis in the lung bases. 2. No acute or significant findings in the abdomen or pelvis. CT scan - head: Radiologist's impression: INDICATION: Fall.. TECHNIQUE: CT head without contrast. COMPARISON: None. FINDINGS: CSF spaces: Within normal limits for age.? Brain parenchyma and extra-axial spaces: The hurd-white differentiation is normal.? No sign of mass, hemorrhage, or midline shift. No extra-axial fluid collection.? Skull base and calvarium: The visualized paranasal sinuses and mastoid air cells demonstrate no acute or significant findings.? The visualized orbits are grossly unremarkable.? No skull fractures.? IMPRESSION: No acute intracranial process identified. CT scan - pelvis: Radiologist's impression: INDICATION: Left hip pain. TECHNIQUE: CT pelvis without contrast. COMPARISON: None. FINDINGS: Bones: A nondisplaced fractures present in the subcapital region of the left femoral neck. This may be acute or subacute. No other osseous abnormality. Joints: Moderate arthritic changes in the hip joint. Soft tissues: Unremarkable. IMPRESSION: Acute or subacute nondisplaced fracture in the subcapital region of the left femoral neck. Chest x-ray: Radiologist's impression: INDICATION: Fall. TECHNIQUE: Chest 1 views. COMPARISON: None. FINDINGS: Cardiovasculature and mediastinum:? Heart size and vasculature are normal in caliber and appearance.? Lungs and pleural spaces:? Lungs are clear except for mild left basilar atelectasis or scarring. No sign of infiltrate or mass.? No sign of pleural effusion.? No pneumothorax.? Bones and soft tissues:? No significant findings. IMPRESSION: No acute or significant findings. Assessment and Plan Assessment and plan (1) Closed fracture of left hip: Status: Acute (2) Seizure disorder: Problem comment: Patient has been having drop attacks thought possibly due to seizures. Had an EEG done in August 2023 which suggested seizure activity so she is on Depakote. Status: Acute (3) Alzheimer's dementia with agitation: Status: Acute (4) Frequent falls: Status: Acute Plan Patient be admitted to the hospital for pain management and surgery. I did discuss with her daughter the option of comfort cares given the advanced dementia. She is going to discuss it with her brother. Plan for surgery tomorrow. Total time spent today is 70 minutes, 55 minutes in coordination of care discussing with daughter and other providers ongoing management of advanced dementia and hip fracture.
[2022-11-15] MEDS: MORPHINE 4 MG/ML INJ 2 MG IVP (21:51)
[2022-11-15] MEDS: LACTATED RINGERS 1000 ML 1,000 ML 100 ML IV (22:04)
[2022-11-15] MEDS: ACETAMINOPHEN 325 MG TABLET 650 MG PO (22:05)
[2022-11-15] MEDS: QUETIAPINE 25 MG TABLET PO (22:08)
[2022-11-15] MEDS: SENNOSIDES/DOCUSATE TABLET 1 TAB PO (22:08)
[2022-11-15] MEDS: MIRTAZAPINE 15 MG TABLET 45 MG PO (22:08)
[2022-11-15] MEDS: DONEPEZIL 5 MG TABLET PO (22:11)
[2022-11-15] MEDS: TRAZODONE HCL 50 MG TABLET PO (22:11)
[2022-11-15] MEDS: DIVALPROEX DELAYED RELEASE 250 MG TABLET 500 MG PO (22:34)
[2022-11-15 23:00] VITALS: BP 91/56; PULSE 64; RESP 20; TEMP 37.2; O2SAT 91; O2SAT 92
[2022-11-16] VITALS (22 sets, daily range): BP systolic 101–128; BP diastolic 62–88; PULSE 62–84; RESP 12–18; TEMP 35.9–36.9; O2SAT 91–100
[2022-11-16] MEDS: MORPHINE 4 MG/ML INJ 2 MG IVP ×2 (02:37→11:07)
--- NOTE | 2022-11-16 05:31 | PC.NURSE ---
SHIFT NOTE 23-: Pt is mostly non-verbal, at times has one word responses, but most of the time does not answer questions appropriately, confused. Pt turned and repositioned with 2 assist, given Morphine x1 for comfort prior to repositioning, otherwise pt has appeared comfortable when at rest. Altman patent and draining. On 2L O2 PNC with oxygen saturations in the low 90's. Afebrile. NPO at midnight for plan of surgery today.
[2022-11-16] MEDS: LACTATED RINGERS 1000 ML 1,000 ML 100 ML IV (07:26)
--- NOTE | 2022-11-16 07:34 | P.IMPN_ITS ---
Subjective Date Seen: 11/16/22 Interval history: Acute or subacute nondisplaced fracture in the subcapital region of the left femoral neck. Exam Const: Vital Signs, click to edit/add: Vital Signs - 24 hr 11/15/22 15:59 11/15/22 19:59 11/15/22 21:02 Temperature 99.2 F Pulse Rate [Pulse Oximeter] 82 87 Respiratory Rate 18 18 18 Blood Pressure [Le ft Arm] Blood Pressure [Le ft Upper Arm] 111/74 113/73 Pulse Oximetry 98 95 93 Oxygen Delivery Me thod Room Air Room Air Nasal Cannula Oxygen Flow Rate 2 11/15/22 20:22 11/15/22 20:22 11/15/22 23:00 Temperature 98.7 F Pulse Rate [Pulse Oximeter] 80 Respiratory Rate 18 18 20 Blood Pressure [Le ft Arm] 102/74 Blood Pressure [Le ft Upper Arm] Pulse Oximetry 93 93 Oxygen Delivery Me thod Nasal Cannula Nasal Cannula Oxygen Flow Rate 2 2 11/15/22 23:00 11/15/22 23:00 11/16/22 03:00 Temperature 99 F 98.2 F Pulse Rate [Pulse Oximeter] 64 76 Respiratory Rate 20 20 18 Blood Pressure [Le ft Arm] 91/56 L 120/70 Blood Pressure [Le ft Upper Arm] Pulse Oximetry 91 92 94 Oxygen Delivery Me thod Nasal Cannula Nasal Cannula Nasal Cannula Oxygen Flow Rate 2 2 2 Labs Labs: Laboratory Results - last 24 hr 11/15/22 11/15/22 11/15/22 16:04 16:12 16:25 WBC RBC Hgb Hct MCV MCH MCHC RDW Coeff of [place] Plt Count Neut % (Auto) Lymph % (Auto) [place] % (Auto) Eos % (Auto) Baso % (Auto) Neut # (Auto) Lymph # (Auto) [place] # (Auto) Eos # (Auto) Baso # (Auto) Sodium 140 Potassium 4.0 Chloride 108 Carbon Dioxide 26 BUN 33 H Creatinine 0.9 Estimated Creat Clear 48.30 Estimated GFR 68 Glucose 107 Calcium 8.5 Total Bilirubin 0.8 Direct Bilirubin 0.1 AST 44 H ALT 64 H Alkaline Phosphatase 94 C-Reactive Protein 5.2 H Total Protein 7.3 Albumin 3.8 Amylase 55 Urine Color Yellow Urine Appearance Clear Urine pH 7.0 Ur Specific [place] 1.020 Urine Protein 1+ A Urine Glucose (UA) Negative Urine Ketones 3+ A Urine Blood Trace-intact A Urine Nitrite Negative Urine Bilirubin 1+ A Urine Urobilinogen 4.0 A Ur Leukocyte Esterase Trace A Urine RBC 2-5 A Urine WBC 2-5 Ur Squamous Epith Cells Few Urine Bacteria None SARS-CoV-2 (PCR) Cancelled Influenza Type A (PCR) Influenza Type B (PCR) RSV (PCR) 11/15/22 11/15/22 16:25 17:45 WBC 9.25 RBC 3.96 L Hgb 12.4 Hct 37.8 MCV 96 MCH 31 MCHC 33 RDW Coeff of [place] 13.0 Plt Count 147 Neut % (Auto) 75.9 H Lymph % (Auto) 12.5 L [place] % (Auto) 8.0 Eos % (Auto) 3.1 Baso % (Auto) 0.3 Neut # (Auto) 7.00 Lymph # (Auto) 1.20 [place] # (Auto) 0.70 Eos # (Auto) 0.29 Baso # (Auto) 0.03 Sodium Potassium Chloride Carbon Dioxide BUN Creatinine Estimated Creat Clear Estimated GFR Glucose Calcium Total Bilirubin Direct Bilirubin AST ALT Alkaline Phosphatase C-Reactive Protein Total Protein Albumin Amylase Urine Color Urine Appearance Urine pH Ur Specific [place] Urine Protein Urine Glucose (UA) Urine Ketones Urine Blood Urine Nitrite Urine Bilirubin Urine Urobilinogen Ur Leukocyte Esterase Urine RBC Urine WBC Ur Squamous Epith Cells Urine Bacteria SARS-CoV-2 (PCR) Negative SARS-CoV-2 Influenza Type A (PCR) Negative PCR FLU A Influenza Type B (PCR) Negative PCR FLU B RSV (PCR) Negative PCR RSV
[2022-11-16] MEDS: LACTATED RINGERS 1000 ML 500 ML IV (07:48)
--- NOTE | 2022-11-16 09:27 | REH.OT ---
Orders received for PT/OT eval and treat. Evaluations on hold pending decision regarding surgery or move to a comfort care approach.
[2022-11-16] MEDS: PANTOPRAZOLE SODIUM 40 MG INJ IVP (09:32)
[2022-11-16] MEDS: SODIUM CHLORIDE 0.9 % (FLUSH) 10 ML SYRINGE 5 ML IVF (09:35)
--- NOTE | 2022-11-16 11:06 | PM.IMPN1 ---
Progress Note: A&P Assessment and plan (1) Closed fracture of left hip: Problem details: I reviewed H& P. I discussed with family. Medically able to proceed to surgery. Status: Acute (2) Alzheimer's dementia with agitation: Problem details: Continue current meds once she is awake and taking p.o.. I did give her PPI the this morning. Status: Acute (3) Seizure disorder: Problem details: Patient has been having drop attacks thought possibly due to seizures. Had an EEG done in August 2023 which suggested seizure activity so she is on Depakote. Weakened dose of Depakote IV if needed. Status: Acute Subjective Date Seen: 11/16/22 Interval history: Daily Progress Note - Hospital Medicine Day #: 2 CC: Admitted last night for hip fracture. Significant dementia. OVERNIGHT UPDATES FROM STAFF & MED, LAB, IMAGING UPDATES -stable hemodynamically overnight. Pain seems well managed. Patient is nonverbal and we used nonverbal cues for her pain control. -I talked with her son. We discussed the options of comfort cares with or without surgery. We also discussed routine care and active rehab. At this point they would like to pursue surgery with no heroic efforts postoperatively. Objective: Sleepy, minimally responsive Vitals: see above Lungs: Clear. Cardiac: S1S2. Disposition/Potential discharge - To the OR this afternoon. Postoperatively [facility] need [facility]. Total time is 35 minutes with greater than 50% spent in counseling and coordination of care. Exam Const: Vital Signs, click to edit/add: Vital Signs - 24 hr 11/15/22 15:59 11/15/22 19:59 11/15/22 21:02 Temperature 99.2 F Pulse Rate [Pulse Oximeter] 82 87 Respiratory Rate 18 18 18 Blood Pressure [Le ft Arm] Blood Pressure [Le ft Upper Arm] 111/74 113/73 Pulse Oximetry 98 95 93 Oxygen Delivery Me thod Room Air Room Air Nasal Cannula Oxygen Flow Rate 2 11/15/22 20:22 11/15/22 20:22 11/15/22 23:00 Temperature 98.7 F Pulse Rate [Pulse Oximeter] 80 Respiratory Rate 18 18 20 Blood Pressure [Le ft Arm] 102/74 Blood Pressure [Le ft Upper Arm] Pulse Oximetry 93 93 Oxygen Delivery Me thod Nasal Cannula Nasal Cannula Oxygen Flow Rate 2 2 11/15/22 23:00 11/15/22 23:00 11/16/22 03:00 Temperature 99 F 98.2 F Pulse Rate [Pulse Oximeter] 64 76 Respiratory Rate 20 20 18 Blood Pressure [Le ft Arm] 91/56 L 120/70 Blood Pressure [Le ft Upper Arm] Pulse Oximetry 91 92 94 Oxygen Delivery Me thod Nasal Cannula Nasal Cannula Nasal Cannula Oxygen Flow Rate 2 2 2 11/16/22 07:00 11/16/22 07:00 11/16/22 07:00 Temperature 97.9 F Pulse Rate [Pulse Oximeter] 76 Respiratory Rate 16 16 16 Blood Pressure [Le ft Arm] 126/79 Blood Pressure [Le ft Upper Arm] Pulse Oximetry 96 96 Oxygen Delivery Me thod Nasal Cannula Nasal Cannula Oxygen Flow Rate 2 2 Labs Labs: Laboratory Results - last 24 hr 11/15/22 11/15/22 11/15/22 16:04 16:12 16:25 WBC RBC Hgb Hct MCV MCH MCHC RDW Coeff of [place] Plt Count Neut % (Auto) Lymph % (Auto) [place] % (Auto) Eos % (Auto) Baso % (Auto) Neut # (Auto) Lymph # (Auto) [place] # (Auto) Eos # (Auto) Baso # (Auto) Sodium 140 Potassium 4.0 Chloride 108 Carbon Dioxide 26 BUN 33 H Creatinine 0.9 Estimated Creat Clear 48.30 Estimated GFR 68 Glucose 107 Calcium 8.5 Total Bilirubin 0.8 Direct Bilirubin 0.1 AST 44 H ALT 64 H Alkaline Phosphatase 94 C-Reactive Protein 5.2 H Total Protein 7.3 Albumin 3.8 Amylase 55 Urine Color Yellow Urine Appearance Clear Urine pH 7.0 Ur Specific [place] 1.020 Urine Protein 1+ A Urine Glucose (UA) Negative Urine Ketones 3+ A Urine Blood Trace-intact A Urine Nitrite Negative Urine Bilirubin 1+ A Urine Urobilinogen 4.0 A Ur Leukocyte Esterase Trace A Urine RBC 2-5 A Urine WBC 2-5 Ur Squamous Epith Cells Few Urine Bacteria None SARS-CoV-2 (PCR) Cancelled Influenza Type A (PCR) Influenza Type B (PCR) RSV (PCR) 11/15/22 11/15/22 16:25 17:45 WBC 9.25 RBC 3.96 L Hgb 12.4 Hct 37.8 MCV 96 MCH 31 MCHC 33 RDW Coeff of [place] 13.0 Plt Count 147 Neut % (Auto) 75.9 H Lymph % (Auto) 12.5 L [place] % (Auto) 8.0 Eos % (Auto) 3.1 Baso % (Auto) 0.3 Neut # (Auto) 7.00 Lymph # (Auto) 1.20 [place] # (Auto) 0.70 Eos # (Auto) 0.29 Baso # (Auto) 0.03 Sodium Potassium Chloride Carbon Dioxide BUN Creatinine Estimated Creat Clear Estimated GFR Glucose Calcium Total Bilirubin Direct Bilirubin AST ALT Alkaline Phosphatase C-Reactive Protein Total Protein Albumin Amylase Urine Color Urine Appearance Urine pH Ur Specific [place] Urine Protein Urine Glucose (UA) Urine Ketones Urine Blood Urine Nitrite Urine Bilirubin Urine Urobilinogen Ur Leukocyte Esterase Urine RBC Urine WBC Ur Squamous Epith Cells Urine Bacteria SARS-CoV-2 (PCR) Negative SARS-CoV-2 Influenza Type A (PCR) Negative PCR FLU A Influenza Type B (PCR) Negative PCR FLU B RSV (PCR) Negative PCR RSV
--- NOTE | 2022-11-16 13:41 | PC.NURSE ---
Patient has been resting throughout the day. Responds to painful stimuli. VS WNL. Morphine given for intermittent pain with movement. Patient resting in bed comfortable after dose. NPO since 11/16/22 0000. Turn and repo. [place] patent with adequate output. Off to surgery 1345.
--- NOTE | 2022-11-16 13:51 | PM.ORCN ---
History of Present Illness HPI Date Seen: 11/16/22 Requesting physician: Amaya Fletcher Chief complaint: Ill Narrative: Patient is a 72-year-old nonverbal female with dementia of. She had an apparent fall and was seemingly in pain. She was brought to the emergency department and diagnosed with a left hip femoral neck fracture. She was admitted for further workup and treatment. Review of Systems Narrative: Review of systems is not able to be obtained from the patient [facility] Medical History Alzheimer's dementia with agitation Anxiety Diaper dermatitis Frequent falls GERD (gastroesophageal reflux disease) Lichen sclerosus et atrophicus Mild asthma Rheumatic mitral valve disease Seizure disorder Urticaria Social History Narrative: She apparently has not had any previous surgery. There is no history of problems with anesthesia, bleeding or clotting disorder. She lives in the dementia unit at [facility]. She has a daughter, Elizabeth, and a son, Shen, for making decisions. Code status is DNR DNI. She does not smoke. She does not drink alcohol. 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 Highest level of school completed/degree received: don't know Smoking Status: Never smoker Do you use any of these nicotine containing products: None Second hand tobacco smoke exposure: No How often do you have a drink containing alcohol: never How often do you have six or more drinks on one occasion: Never AUDIT-C Alcohol total score: 0 Non-prescribed substance use: denies use service: No Meds Home Medications and Allergies Home Medications Medication Instructions Recorded Confirmed Type acetaminophen 500 mg capsule 1,000 mg PO TID PRN 05/11/22 11/15/22 History aluminum-mag hydroxide-simethicone 15 ml PO Q4H PRN 05/11/22 11/16/22 History 200 mg-200 mg-20 mg/5 mL oral susp (Advanced Antacid-[place]as) cetirizine 5 mg tablet 5 mg PO DAILY 05/11/22 11/15/22 History clobetasol 0.05 % topical ointment 1 applic topical HS 05/11/22 11/15/22 History donepezil 5 mg tablet 5 mg PO HS 05/11/22 11/15/22 History fluoxetine 20 mg capsule 20 mg PO DAILY 05/11/22 11/15/22 History memantine 10 mg tablet 10 mg PO DAILY 05/11/22 11/15/22 History mirtazapine 45 mg tablet 45 mg PO HS 05/11/22 11/15/22 History omeprazole 20 mg capsule,delayed 20 mg PO BID 05/11/22 11/16/22 History release ondansetron 4 mg disintegrating 4 mg PO DAILY 05/11/22 11/15/22 History tablet sennosides 8.6 mg-docusate sodium 1 tab-cap PO BID PRN 05/11/22 11/15/22 History 50 mg tablet (Senna Plus) trazodone 50 mg tablet 25 mg PO HS 05/11/22 11/16/22 History zinc oxide 13 % topical cream 1 applic topical BID PRN 05/11/22 11/16/22 History (Desitin Rapid Relief) divalproex 250 mg tablet,extended 500 mg PO HS 11/15/22 11/15/22 History release 24 hr quetiapine 25 mg tablet 25 mg PO QHS 11/16/22 11/16/22 History quetiapine 25 mg tablet 37.5 mg PO DAILY 11/16/22 11/16/22 History Allergies Allergy/AdvReac Type Severity Reaction Status Date / Time No Known Drug Allergies Allergy Verified 11/15/22 16:04 Ortho Exam Narrative Exam Narrative: The patient is examined supine in the hospital bed. She is somnolent, nonverbal but opens her eyes to voice. She does not follow commands. The skin about the left hip is intact. The left foot is pink and warm. Motor and sensory function is not tested. Const Vital Signs, click to edit/add: Vital Signs - 24 hr 11/15/22 15:59 11/15/22 19:59 11/15/22 21:02 Temperature 99.2 F Pulse Rate [Pulse Oximeter] 82 87 Respiratory Rate 18 18 18 Blood Pressure [Left Arm] Blood Pressure [Left Upper Arm] 111/74 113/73 Pulse Oximetry 98 95 93 Oxygen Delivery Method Room Air Room Air Nasal Cannula Oxygen Flow Rate 2 11/15/22 20:22 11/15/22 20:22 11/15/22 23:00 Temperature 98.7 F Pulse Rate [Pulse Oximeter] 80 Respiratory Rate 18 18 20 Blood Pressure [Left Arm] 102/74 Blood Pressure [Left Upper Arm] Pulse Oximetry 93 93 Oxygen Delivery Method Nasal Cannula Nasal Cannula Oxygen Flow Rate 2 2 11/15/22 23:00 11/15/22 23:00 11/16/22 03:00 Temperature 99 F 98.2 F Pulse Rate [Pulse Oximeter] 64 76 Respiratory Rate 20 20 18 Blood Pressure [Left Arm] 91/56 L 120/70 Blood Pressure [Left Upper Arm] Pulse Oximetry 91 92 94 Oxygen Delivery Method Nasal Cannula Nasal Cannula Nasal Cannula Oxygen Flow Rate 2 2 2 11/16/22 07:00 11/16/22 07:00 11/16/22 07:00 Temperature 97.9 F Pulse Rate [Pulse Oximeter] 76 Respiratory Rate 16 16 16 Blood Pressure [Left Arm] 126/79 Blood Pressure [Left Upper Arm] Pulse Oximetry 96 96 Oxygen Delivery Method Nasal Cannula Nasal Cannula Oxygen Flow Rate 2 2 11/16/22 11:00 Temperature 98.3 F Pulse Rate [Pulse Oximeter] 78 Respiratory Rate 14 Blood Pressure [Left Arm] 128/88 Blood Pressure [Left Upper Arm] Pulse Oximetry 94 Oxygen Delivery Method Nasal Cannula Oxygen Flow Rate 1 Results Labs Labs: Laboratory Results - last 48 hr 11/15/22 11/15/22 11/15/22 16:04 16:12 16:25 WBC RBC Hgb Hct MCV MCH MCHC RDW Coeff of [place] Plt Count Neut % (Auto) Lymph % (Auto) [place] % (Auto) Eos % (Auto) Baso % (Auto) Neut # (Auto) Lymph # (Auto) [place] # (Auto) Eos # (Auto) Baso # (Auto) Sodium 140 Potassium 4.0 Chloride 108 Carbon Dioxide 26 BUN 33 H Creatinine 0.9 Estimated Creat Clear 48.30 Estimated GFR 68 Glucose 107 Calcium 8.5 Total Bilirubin 0.8 Direct Bilirubin 0.1 AST 44 H ALT 64 H Alkaline Phosphatase 94 C-Reactive Protein 5.2 H Total Protein 7.3 Albumin 3.8 Amylase 55 Urine Color Yellow Urine Appearance Clear Urine pH 7.0 Ur Specific [place] 1.020 Urine Protein 1+ A Urine Glucose (UA) Negative Urine Ketones 3+ A Urine Blood Trace-intact A Urine Nitrite Negative Urine Bilirubin 1+ A Urine Urobilinogen 4.0 A Ur Leukocyte Esterase Trace A Urine RBC 2-5 A Urine WBC 2-5 Ur Squamous Epith Cells Few Urine Bacteria None SARS-CoV-2 (PCR) Cancelled Influenza Type A (PCR) Influenza Type B (PCR) RSV (PCR) 11/15/22 11/15/22 16:25 17:45 WBC 9.25 RBC 3.96 L Hgb 12.4 Hct 37.8 MCV 96 MCH 31 MCHC 33 RDW Coeff of [place] 13.0 Plt Count 147 Neut % (Auto) 75.9 H Lymph % (Auto) 12.5 L [place] % (Auto) 8.0 Eos % (Auto) 3.1 Baso % (Auto) 0.3 Neut # (Auto) 7.00 Lymph # (Auto) 1.20 [place] # (Auto) 0.70 Eos # (Auto) 0.29 Baso # (Auto) 0.03 Sodium Potassium Chloride Carbon Dioxide BUN Creatinine Estimated Creat Clear Estimated GFR Glucose Calcium Total Bilirubin Direct Bilirubin AST ALT Alkaline Phosphatase C-Reactive Protein Total Protein Albumin Amylase Urine Color Urine Appearance Urine pH Ur Specific [place] Urine Protein Urine Glucose (UA) Urine Ketones Urine Blood Urine Nitrite Urine Bilirubin Urine Urobilinogen Ur Leukocyte Esterase Urine RBC Urine WBC Ur Squamous Epith Cells Urine Bacteria SARS-CoV-2 (PCR) Negative SARS-CoV-2 Influenza Type A (PCR) Negative PCR FLU A Influenza Type B (PCR) Negative PCR FLU B RSV (PCR) Negative PCR RSV Diagnostic results Additional Comments: An AP pelvis and frog-leg lateral view of the left hip show a nondisplaced left femoral neck fracture. There is no pre-existing hip joint arthritis. There is no obvious pathologic lesion. Assessment and Plan Assessment and plan (1) Closed fracture of left hip: Problem comment: I reviewed H& P. I discussed with family. Medically able to proceed to surgery. Status: Acute Total time spent: Total time spent is greater than 50% in coordination of care (as documented) at patient's floor/unit and/or counseling patient: (2) Alzheimer's dementia with agitation: Problem comment: Continue current meds once she is awake and taking p.o.. I did give her PPI the this morning. Status: Acute Total time spent: Total time spent is greater than 50% in coordination of care (as documented) at patient's floor/unit and/or counseling patient: (3) Seizure disorder: Problem comment: Patient has been having drop attacks thought possibly due to seizures. Had an EEG done in August 2023 which suggested seizure activity so she is on Depakote. Weakened dose of Depakote IV if needed. Status: Acute Total time spent: Total time spent is greater than 50% in coordination of care (as documented) at patient's floor/unit and/or counseling patient: Plan Assessment: Nondisplaced left femoral neck fracture Plan: I explained this diagnosis to her son Kenneth by phone. I told him that her injury is best treated with a bipolar hemiarthroplasty. I told him that this will make the fracture pain significantly improved and will allow us to sit her and mobilize her as tolerates. He agrees and wishes to proceed with the surgery. The patient has been medically cleared for surgery. Therefore, we will plan to take her to the operating room today.
--- NOTE | 2022-11-16 14:15 | CRLHL7_ITS ---
For Patients: As a result of the Cures Act, medical imaging exams and procedure reports are released immediately into your electronic medical record. You may view this report before your referring provider. If you have questions, please contact your health care provider. Indication: Hip replacement surgery Technique: AP hip fluoroscopic image. Fluoroscopy time 15.2 seconds. Findings/Impression: Hardware from a left hip arthroplasty is in satisfactory position. Dictated by Beto Terry MD @ 11/17/2022 11:00:12 AM (Electronically Signed)
--- NOTE | 2022-11-16 14:24 | P.NB_ITS ---
Nerve Block Nerve Block Time Seen by Provider: 14:15 Date Seen: 11/16/22 Type of block requested by surgeon for post-operative analgesia: STEPHANE/LFCN Side: left Time out performed: Yes Verification of patient name: Yes Verification of date of : Yes Site marking: site marked Name of person performing procedure: El Continuous monitoring Was continuous monitoring of O2 sat, B/P, satellite project site monitor, recorded every 15 minutes?: Yes Procedure Checklist: sterile prep, needles and gloves Ultrasound guided. Images saved: Yes Medications given in 5ml increments after negative aspiration: Ropivicaine %: 0.5 mL: 15 Needle gauge: 20 Patient tolerated procedure well: Yes Additional comments: Needle noted below psoas tendon needle noted adjacent to LFCN Inadvertant wrong sided STEPHANE block was performed. 15 ml 0.5% ropivicaine was injected on the Right. immediately realized the error. Discussed with surgical team and patients family. Left sided STEPHANE was then performed. Block Charges Block Charge (with Pro Fee): Other Periph Nerve Block Use of Ultrasound Machine for Block: Yes- US Guidance/pain block
--- NOTE | 2022-11-16 15:15 | P.ANES_ITS ---
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
--- NOTE | 2022-11-16 15:52 | CRLHL7_ITS ---
For Patients: As a result of the Cures Act, medical imaging exams and procedure reports are released immediately into your electronic medical record. You may view this report before your referring provider. If you have questions, please contact your health care provider. Indication: post op left hip fracture Technique: AP hip centered pelvis and lateral view left hip Findings/Impression: Hardware from a left bipolar hip arthroplasty is in satisfactory position. Bone alignment is normal. No sign of acute fracture. Postop changes are within normal limits. Dictated by Beto Terry MD @ 11/17/2022 11:01:18 AM (Electronically Signed)
--- NOTE | 2022-11-16 15:57 | PM.ORPRC ---
Procedure Note Date of procedure: 11/16/22 Procedure: PREOPERATIVE DIAGNOSIS: Right hip displaced femoral neck fracture POSTOPERATIVE DIAGNOSIS: Right hip displaced femoral neck fracture NAME OF OPERATION: Right hip cemented bipolar hemiarthroplasty SURGEON: Abimael Graf MD [facility] INSTRUCTOR: Hanna Bass PA-C, Aneesh Leon PA-C IMPLANTS: 1. Actis # 4 standard collared stem 2. 28 + 5 cobalt chrome femoral head 3. 46 mm bipolar component ANESTHESIA: Spinal ESTIMATED BLOOD LOSS: 100 cc COMPLICATIONS: None SPECIMENS: None DRAINS: None PREOPERATIVE ANTIBIOTICS: Ancef 1 g INDICATIONS: The patient is a 72-year-old who fell yesterday sustaining a left hip femoral neck fracture. The patient was admitted for workup and management. They have been medically cleared for surgery. Operative intervention was recommended. The risks, benefits and expected outcomes were discussed in detail. These included but were not limited to: Infection, bleeding, injury to blood vessel or nerve, venous thromboembolism. All questions were answered to their satisfaction. Use of an communication assistant was necessary throughout the case for patient positioning and safety, soft tissue retraction and closure. PROCEDURE: Spinal anesthesia was administered. The patient was placed supine on the [place] table. The communication assistant made sure the patient was properly positioned. The hip was prepped and draped in the usual sterile fashion. The image intensifier was brought in for a perfect AP pelvis and a perfect double tear drop AP view of each hip which were used for intraoperative templating with our fluoroscopic guide. An oblique incision was made 3 cm distal and 3 cm lateral to the anterior superior iliac spine. The communication assistant retracted the soft tissues to protect them. Subcutaneous dissection was taken with electrocautery to the superficial fascia. The fascia was divided in line with the incision. Blunt dissection was carried medially to the tensor fascia jacinto and sartorius interval. Deep dissection was carried with electrocautery. The circumflex vessels were cauterized and divided. The capsule was exposed and then divided in a T-fashion, tagged with #1 Ethibond sutures. Retractors were placed in the joint, held by the communication assistant. The corkscrew was placed in the femoral head. The neck cut was made in the subcapital region. We made a second neck cut more distal. The napkin ring of bone was removed. The femoral head was removed intact. The limb was placed in 140 degrees of external rotation, maximum extension and adduction. A significant amount of time was spent releasing the capsule to allow us to deliver the femur into the wound and complete the femoral side safely. Retractors were held by the communication assistant throughout the femoral preparation. The box shook patcher and canal finder were used. Broaches were used to a stable size. The calcar reamer was used. Trial components were placed. We attempted to reduce the hip but our length long. In doing so we fractured the anterior part of the neck. Medial calcar and posterior neck remain intact. Trial components were removed. We placed a super cable cerclage around the neck, just proximal to the lesser trochanter. We then advanced the broach distally and used the calcar Reamer, removing some length. Trial components were placed. The hip was reduced and was found to be stable with appropriate soft tissue tension. Length and offset had been nicely restored using the image intensifier and our fluoroscopic guide. Trial components were removed. The cement restrictor was placed. The canal was irrigated with pulse lavage then thoroughly dried. Cement was placed with the cement gun and hand pressurized. The # 4 stem was placed in the canal. Excessive cement was removed, the cement was allowed to harden. The 28 mm + 5 cobalt chrome femoral head and the 46 mm bipolar component were placed. The hip was reduced and again was found to be stable with appropriate soft tissue tension. Leg lengths appear equal. The communication assistant irrigated the wound with 3 liters of normal saline via pulse lavage. The communication assistant repaired the anterior capsule with a #1 Vicryl and our previously placed Ethibond sutures. The communication assistant closed the fascia over the tensor fascia jacinto with a #1 PDO Stratafix, subcutaneous tissues with 2-0 Vicryl, skin with a running 3-0 Stratafix and glue. A dry dressing was applied by the communication assistant. Sponge and needle counts were correct x 2. The patient tolerated the procedure well; there were no apparent complications. They were awakened and extubated in the operating room, sent to the Post-Anesthesia Care Unit in satisfactory condition. PLAN: 1. The patient will be mobilized with physical therapy, weight-bearing as tolerates 2. Xarelto x 5 days then aspirin x 30 days will be used for DVT prophylaxis 3. The patient will be discharged once medically appropriate
--- NOTE | 2022-11-16 16:37 | W.ANESCHARGE ---
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
[2022-11-16] MEDS: 5 % DEXTROSE IN LAC RINGER'S 1,000 ML 100 ML IV (18:24)
[2022-11-16] MEDS: CEFAZOLIN 1 GM in 0.9 % SODIUM CHLORIDE Mini-bag 100 ML IVPB (20:35)
[2022-11-16] MEDS: DIVALPROEX DELAYED RELEASE 250 MG TABLET 500 MG PO (20:35)
[2022-11-16] MEDS: MIRTAZAPINE 15 MG TABLET 45 MG PO (20:42)
[2022-11-16] MEDS: DONEPEZIL 5 MG TABLET PO (20:42)
[2022-11-16] MEDS: SENNOSIDES 1 TAB TABLET 2 TAB PO (20:42)
[2022-11-16] MEDS: QUETIAPINE 25 MG TABLET PO (20:43)
[2022-11-16] MEDS: HYDROmorphone 0.5 mg/0.5 ml inj IVP (20:46)
--- NOTE | 2022-11-16 23:35 | PC.NURSE ---
End of Shift: Patient to CCU1 from PACU at 1705. Opens eyes to voice but no verbal communication. Unable to rate pain but facial grimace and grasping at site noted with position changes, PRN Dilaudid given x1. Tolerating applesauce and pudding with no nausea/emesis. Able to take pills with applesauce. Frequent turn and reposition. Mepliex to reddened bottom. Altman patent. O2 sats decrease to 88-89% on room air, 1L NC to keep sats above 90%.
[2022-11-17] VITALS (7 sets, daily range): BP systolic 110–126; BP diastolic 61–77; PULSE 70–95; RESP 12–18; TEMP 36.4–37.3; O2SAT 94–97
[2022-11-17] MEDS: HYDROmorphone 0.5 mg/0.5 ml inj IVP (02:26)
[2022-11-17] MEDS: CEFAZOLIN 1 GM in 0.9 % SODIUM CHLORIDE Mini-bag 100 ML IVPB ×2 (04:45→12:25)
[2022-11-17] MEDS: 5 % DEXTROSE IN LAC RINGER'S 1,000 ML 100 ML IV ×3 (04:45→23:29)
--- NOTE | 2022-11-17 06:46 | PC.NURSE ---
SHIFT NOTE : Pt nonverbal all shift, very fatigued. PRN Dilaudid given x1 prior to repositioning. Sx dressing C/D/I. Active ice on continuously. On 1L O2 PNC with oxygen saturations in the low 90's. Afebrile. Altman patent and draining. Appears comfortable, turned and repositioned Q2H with a 2 assist.
[2022-11-17 06:51] LABS: Hematocrit 30.7 % (33.0-51.0); Hemoglobin* 10.2 gm/dL (12.0-16.0); Mean Corpuscular HGB Conc 33 gm/dL (32-36); Mean Corpuscular Hemoglobin 31 pg (26-34); Mean Corpuscular Volume 95 fL (80-100); Platelet Count* 124 K/uL (140-440); Red Blood Count 3.25 m/uL (4.00-5.20)
[2022-11-17 06:58] LABS: Slide Review Reflex No
[2022-11-17 07:02] LABS: Potassium* 3.8 mmol/L (3.6-5.1); Sodium* 138 mmol/L (135-149)
[2022-11-17 07:05] LABS: Creatinine* 0.6 mg/dL (0.5-1.5); Estimated Glomerular Filt Rate 96 ml/min
[2022-11-17 07:06] LABS: Blood Urea Nitrogen* 15 mg/dL (7-30)
[2022-11-17] MEDS: OXYCODONE 5 MG TABLET PO (09:14)
[2022-11-17] MEDS: OMEPRAZOLE 20 MG CAPSULE DR PO (09:14)
[2022-11-17] MEDS: RIVAROXABAN 10 MG TABLET PO (09:14)
[2022-11-17] MEDS: QUETIAPINE 25 MG TABLET PO ×2 (09:15→21:11)
[2022-11-17] MEDS: FLUOXETINE HCL 20 MG CAPSULE PO (09:15)
[2022-11-17] MEDS: SENNOSIDES 1 TAB TABLET 2 TAB PO ×2 (09:15→21:11)
[2022-11-17] MEDS: MEMANTINE HCL 10 MG TABLET PO (09:15)
[2022-11-17] MEDS: SODIUM CHLORIDE 0.9 % (FLUSH) 10 ML SYRINGE 5 ML IVF ×2 (09:18→21:12)
--- NOTE | 2022-11-17 10:36 | P.ORPN_ITS ---
Subjective Subjective Time Seen by Provider: 08:15 Date Seen: 11/17/22 Principal diagnosis: Status post left femoral neck fracture, bipolar hemiarthroplasty on Interval history: Jessica appears comfortable at rest. She will eventually discharged to a [facility] facility. She resides at [facility]. Ortho Exam Narrative Exam Narrative: Jessica is not oriented. She is arousable. Dressing is intact. Mild soft tissue edema about the left hip. She is not able to follow direction. Const Vital Signs, click to edit/add: Vital Signs - 24 hr 11/16/22 11:00 11/16/22 16:26 11/16/22 16:35 Temperature 98.3 F 98.1 F Pulse Rate 67 65 Pulse Rate [Pulse Oximeter] 78 Respiratory Rate 14 18 14 Blood Pressure 121/81 118/66 Blood Pressure [Left Arm] 128/88 Pulse Oximetry 94 98 98 Oxygen Delivery Method Nasal Cannula OxyMask OxyMask Oxygen Flow Rate 1 6 6 11/16/22 16:40 11/16/22 16:45 11/16/22 16:50 Temperature Pulse Rate 66 64 62 Pulse Rate [Pulse Oximeter] Respiratory Rate 16 14 12 Blood Pressure 112/75 127/78 127/64 Blood Pressure [Left Arm] Pulse Oximetry 100 100 100 Oxygen Delivery Method OxyMask OxyMask OxyMask Oxygen Flow Rate 6 6 6 11/16/22 16:55 11/16/22 17:30 11/16/22 17:05 Temperature 96.6 F L Pulse Rate 64 71 Pulse Rate [Pulse Oximeter] Respiratory Rate 14 14 Blood Pressure 118/65 Blood Pressure [Left Arm] 109/71 Pulse Oximetry 100 95 Oxygen Delivery Method OxyMask Nasal Cannula Nasal Cannula Oxygen Flow Rate 6 2 2 11/16/22 17:20 11/16/22 17:35 11/16/22 17:50 Temperature 97.1 F L Pulse Rate Pulse Rate [Pulse Oximeter] 68 76 84 Respiratory Rate 14 16 16 Blood Pressure Blood Pressure [Left Arm] 125/75 109/85 101/86 Pulse Oximetry 97 96 95 Oxygen Delivery Method Nasal Cannula Nasal Cannula Nasal Cannula Oxygen Flow Rate 2 2 1 11/16/22 18:05 11/16/22 18:35 11/16/22 19:05 Temperature 97.1 F L Pulse Rate Pulse Rate [Pulse Oximeter] 79 80 80 Respiratory Rate 16 16 16 Blood Pressure Blood Pressure [Left Arm] 116/75 125/74 118/75 Pulse Oximetry 93 92 94 Oxygen Delivery Method Nasal Cannula Nasal Cannula Nasal Cannula Oxygen Flow Rate 1 1 1 11/16/22 20:00 11/16/22 21:00 11/16/22 22:00 Temperature 98.4 F 98.0 F Pulse Rate Pulse Rate [Pulse Oximeter] 81 70 73 Respiratory Rate 16 16 16 Blood Pressure Blood Pressure [Left Arm] 117/75 111/63 105/67 Pulse Oximetry 94 91 94 Oxygen Delivery Method Nasal Cannula Nasal Cannula Nasal Cannula Oxygen Flow Rate 1 1 1 11/16/22 23:30 11/16/22 23:00 11/16/22 23:00 Temperature 97.1 F L Pulse Rate Pulse Rate [Pulse Oximeter] 77 Respiratory Rate 16 16 16 Blood Pressure Blood Pressure [Left Arm] 113/62 Pulse Oximetry 91 92 Oxygen Delivery Method Nasal Cannula Nasal Cannula Oxygen Flow Rate 1 2 11/16/22 23:00 11/17/22 03:00 11/17/22 07:00 Temperature 97.1 F L 97.6 F Pulse Rate Pulse Rate [Pulse Oximeter] 77 70 Respiratory Rate 16 18 12 Blood Pressure Blood Pressure [Left Arm] 106/71 110/61 Pulse Oximetry 92 94 94 Oxygen Delivery Method Nasal Cannula Nasal Cannula Nasal Cannula Oxygen Flow Rate 2 1 1 11/17/22 07:00 Temperature 98.1 F Pulse Rate Pulse Rate [Pulse Oximeter] 72 Respiratory Rate 12 Blood Pressure Blood Pressure [Left Arm] 126/77 Pulse Oximetry 94 Oxygen Delivery Method Nasal Cannula Oxygen Flow Rate 1 Assessment and Plan Assessment and plan (1) Closed fracture of left hip: Problem details: Left bipolar hemiarthroplasty on 11/16/2022, Dr. Graf Status: Acute Assessment and Plan: Plan for discharge is today to home if they meet discharge criteria. DVT prophylaxis , she would benefit from the 5 days of Xarelto 10 mg daily, Anival stockings x1 month may remove for 1 hr per day, physical therapy and occupational therapy daily as tolerated. Weightbearing as tolerated left lower extremity. Remove dressing 1 week. Observe wound and phone Orthopedics with any questions or concerns Use Ice on operative hip unrestricted. Return to clinic in [address] Graf Minimize narcotic use. Wean off and discontinue soon as possible. Orthopedic discharge meds have not been completed. They will be completed once a pharmacy is known. (2) Alzheimer's dementia with agitation: Problem details: Continue current meds once she is awake and taking p.o.. I did give her PPI the this morning. Status: Acute (3) Seizure disorder: Problem details: Patient has been having drop attacks thought possibly due to seizures. Had an EEG done in August 2023 which suggested seizure activity so she is on Depakote. Weakened dose of Depakote IV if needed. Status: Acute
--- NOTE | 2022-11-17 11:01 | PM.IMPN1 ---
Progress Note: A&P Assessment and plan (1) Closed fracture of left hip: Problem details: Right bipolar hemiarthroplasty on 11/16/2022, Dr. Graf Status: Acute (2) Alzheimer's dementia with agitation: Problem details: Nonverbal. Does not take direction for PT/OT this am. Started shaking with interaction (like previously noted). Goal - ensure adequate pain control and antianxiety. She has PO tylenol, celebrex - PO oxy, IV dilaudid. we need to ice and reposition. PO seroquel and IV zyprexa for agitation. avoid benzos. delirium is likely unavoidable. Status: Acute (3) Seizure disorder: Problem details: Patient has been having drop attacks thought possibly due to seizures. Had an EEG done in August 2022 which suggested seizure activity so she is on Depakote. Taking PO meds on 11/17/22 Status: Acute Subjective Date Seen: 11/17/22 Interval history: Daily Progress Note - Hospital Medicine Day #: 3 Postop day #1 Right hip cemented bipolar hemiarthroplasty CC: Right hip fracture, status post fall, severe dementia OVERNIGHT UPDATES FROM STAFF & MED, LAB, IMAGING UPDATES Jessica is had a stable night. Is nonverbal. Her vital signs are all reassuring. She is on minimal nasal cannula oxygen support. She becomes easily agitated with movement. At a baseline she rests with her eyes closed with only minimal moaning. When we tried to sit her up she becomes agitated and shakes. This appears to be more anxiety and or pain derived. Keeping in mind she does have an nonspecific neurologic diagnosis with an abnormal EEG recently. She is on p.o. Depakote at night. She was able to take p.o. meds last night and earlier today. Preop hemoglobin 12.4, postop hemoglobin 10.2 Platelet count 147 down to 124 this morning Basic chemistry normal this morning. Objective: She opens her eyes spontaneously, she will track for short periods of time people in the room. She does not respond verbally. She does moan and will have some jerky upper extremity and lower extremity shaking the does not appeared to be tonic clonic. Vitals: see above Lungs: Shallow inspiration Cardiac: S1S2. Surgical site is clean dry and intact. No seepage. Disposition/Potential discharge - [facility] care verses comfort cares as dictated by her weekend Total time is 35 minutes with greater than 50% spent in counseling and coordination of care. Exam Const: Vital Signs, click to edit/add: Vital Signs - 24 hr 11/16/22 16:26 11/16/22 16:35 11/16/22 16:40 Temperature 98.1 F Pulse Rate 67 65 66 Pulse Rate [Pulse Oximeter] Respiratory Rate 18 14 16 Blood Pressure 121/81 118/66 112/75 Blood Pressure [Le ft Arm] Pulse Oximetry 98 98 100 Oxygen Delivery Me thod OxyMask OxyMask OxyMask Oxygen Flow Rate 6 6 6 11/16/22 16:45 11/16/22 16:50 11/16/22 16:55 Temperature Pulse Rate 64 62 64 Pulse Rate [Pulse Oximeter] Respiratory Rate 14 12 14 Blood Pressure 127/78 127/64 118/65 Blood Pressure [Le ft Arm] Pulse Oximetry 100 100 100 Oxygen Delivery Me thod OxyMask OxyMask OxyMask Oxygen Flow Rate 6 6 6 11/16/22 17:30 11/16/22 17:05 11/16/22 17:20 Temperature 96.6 F L Pulse Rate 71 Pulse Rate [Pulse Oximeter] 68 Respiratory Rate 14 14 Blood Pressure Blood Pressure [Le ft Arm] 109/71 125/75 Pulse Oximetry 95 97 Oxygen Delivery Me thod Nasal Cannula Nasal Cannula Nasal Cannula Oxygen Flow Rate 2 2 2 11/16/22 17:35 11/16/22 17:50 11/16/22 18:05 Temperature 97.1 F L Pulse Rate Pulse Rate [Pulse Oximeter] 76 84 79 Respiratory Rate 16 16 16 Blood Pressure Blood Pressure [Le ft Arm] 109/85 101/86 116/75 Pulse Oximetry 96 95 93 Oxygen Delivery Me thod Nasal Cannula Nasal Cannula Nasal Cannula Oxygen Flow Rate 2 1 1 11/16/22 18:35 11/16/22 19:05 11/16/22 20:00 Temperature 97.1 F L 98.4 F Pulse Rate Pulse Rate [Pulse Oximeter] 80 80 81 Respiratory Rate 16 16 16 Blood Pressure Blood Pressure [Le ft Arm] 125/74 118/75 117/75 Pulse Oximetry 92 94 94 Oxygen Delivery Me thod Nasal Cannula Nasal Cannula Nasal Cannula Oxygen Flow Rate 1 1 1 11/16/22 21:00 11/16/22 22:00 11/16/22 23:30 Temperature 98.0 F 97.1 F L Pulse Rate Pulse Rate [Pulse Oximeter] 70 73 77 Respiratory Rate 16 16 16 Blood Pressure Blood Pressure [Le ft Arm] 111/63 105/67 113/62 Pulse Oximetry 91 94 91 Oxygen Delivery Me thod Nasal Cannula Nasal Cannula Nasal Cannula Oxygen Flow Rate 1 1 1 11/16/22 23:00 11/16/22 23:00 11/16/22 23:00 Temperature 97.1 F L Pulse Rate Pulse Rate [Pulse Oximeter] 77 Respiratory Rate 16 16 16 Blood Pressure Blood Pressure [Le ft Arm] 106/71 Pulse Oximetry 92 92 Oxygen Delivery Me thod Nasal Cannula Nasal Cannula Oxygen Flow Rate 2 2 11/17/22 03:00 11/17/22 07:00 11/17/22 07:00 Temperature 97.6 F 98.1 F Pulse Rate Pulse Rate [Pulse Oximeter] 70 72 Respiratory Rate 18 12 12 Blood Pressure Blood Pressure [Le ft Arm] 110/61 126/77 Pulse Oximetry 94 94 94 Oxygen Delivery Me thod Nasal Cannula Nasal Cannula Nasal Cannula Oxygen Flow Rate 1 1 1 Labs Labs: Laboratory Results - last 24 hr 11/17/22 11/17/22 06:33 06:33 WBC 11.40 H RBC 3.25 L Hgb 10.2 L Hct 30.7 L MCV 95 MCH 31 MCHC 33 Plt Count 124 L Sodium 138 Potassium 3.8 BUN 15 Creatinine 0.6 Estimated Creat Clear 48.30 Estimated GFR 96
--- NOTE | 2022-11-17 11:03 | REH.PT ---
Orders for PT Eval and treat: Chart reviewed and pt seen by communications writer. Pt had pain medication prior to session. She is unable to follow directions. Needing Max A of 2 for supine<>sit transfers. Able to sit at edge of bed for 3 minutes with Min A-CGA. Pt with jerky movements of UE's and LE's while seated at EOB. Moans in pain with ROM/movement of left LE. Unable to follow cues for transfers and ex. Recommend nursing staff use ceiling lift for transfers. Pt is not appropriate for skilled PT at this time. D/C PT eval and treat.
--- NOTE | 2022-11-17 11:09 | REH.OT ---
Orders received for OT eval and treat. Patient is post bipolar hemiarthroplasty post fall. She has significant dementia and resides at the memory care unit at [facility]. She is non verbal and unable to follow directions. She requires total care and all of her needs are to be met nursing staff. No skilled OT warranted. no charge.
[2022-11-17] MEDS: CELECOXIB 200 MG CAPSULE PO (11:19)
[2022-11-17] MEDS: ACETAMINOPHEN 325 MG TABLET 650 MG PO ×2 (11:20→17:45)
--- NOTE | 2022-11-17 14:53 | PC.NURSE ---
Hx of dementia. Arouses with stimulation and occasionally arouses with voice. Per PT and OT did not tolerate dangle. Premedicated prior to activity. Tremors present with activity and ADLs. History of tremors, MD aware. Remains on 1 L of oxygen and sats in low 90s to high 80s. Medications were crushed, given with applesauce and tolerated well. Patient needing total assistance with food and fluid intake. Altman is patent with adequate output. Pt is up in the chair transferred with ceiling left.
[2022-11-17] MEDS: DONEPEZIL 5 MG TABLET PO (21:11)
[2022-11-17] MEDS: MIRTAZAPINE 15 MG TABLET 45 MG PO (21:11)
[2022-11-17] MEDS: DIVALPROEX DELAYED RELEASE 250 MG TABLET 500 MG PO (21:11)
[2022-11-18] VITALS (7 sets, daily range): BP systolic 104–130; BP diastolic 52–96; PULSE 73–115; RESP 12–16; TEMP 36.6–37.6; O2SAT 94–97
[2022-11-18] MEDS: ACETAMINOPHEN 325 MG TABLET 650 MG PO ×4 (00:15→18:55)
--- NOTE | 2022-11-18 06:41 | PC.NURSE ---
END OF SHIFT NOTE: PT WITH ADVANCED ALZHEIMER?S DEMENTIA. PT MOSTLY NON-VERBAL TO QUESTIONS AND WILL MUMBLE NOT PERTAINING TO QUESTIONS ASKED. LSCTA. VSS ON 0-2L NC OF SUPPLEMENTAL OXYGEN; AFEBRILE. BANUELOS IS PATENT AND DRAINING LIGHT EUGENE URINE WITH SEDIMENTS. ACTIVE ICE TO LEFT HIP. LEFT HIP DRESSING IS C/D/I. MEPILEX TO SACRUM REPLACED. PT IS A CEILING LIFT WITH ASSIST OF 2. TREMORS AND ABRUPT JERKS MORE APPARENT THIS MORNING. PT BECOMES VERY AGITATED WHEN REPOSITIONED AND WITH VITALS.?
[2022-11-18 06:47] LABS: Hematocrit 33.7 % (33.0-51.0); Hemoglobin* 11.1 gm/dL (12.0-16.0); Mean Corpuscular HGB Conc 33 gm/dL (32-36); Mean Corpuscular Hemoglobin 31 pg (26-34); Mean Corpuscular Volume 94 fL (80-100); Platelet Count* 168 K/uL (140-440); Red Blood Count 3.59 m/uL (4.00-5.20); White Blood Count* 11.88 K/uL (4.50-11.00)
[2022-11-18 06:49] LABS: Slide Review Reflex No
[2022-11-18 06:58] LABS: Sodium* 143 mmol/L (135-149)
[2022-11-18 06:59] LABS: Potassium* 3.3 mmol/L (3.6-5.1)
[2022-11-18 07:01] LABS: Creatinine* 0.6 mg/dL (0.5-1.5); Estimated Glomerular Filt Rate 96 ml/min
[2022-11-18 07:02] LABS: Blood Urea Nitrogen* 8 mg/dL (7-30)
[2022-11-18] MEDS: FLUOXETINE HCL 20 MG CAPSULE PO (08:36)
[2022-11-18] MEDS: CELECOXIB 200 MG CAPSULE PO (08:36)
[2022-11-18] MEDS: MEMANTINE HCL 10 MG TABLET PO (08:37)
[2022-11-18] MEDS: OXYCODONE 5 MG TABLET PO ×3 (08:37→18:55)
[2022-11-18] MEDS: RIVAROXABAN 10 MG TABLET PO (08:37)
[2022-11-18] MEDS: OMEPRAZOLE 20 MG CAPSULE DR PO (08:37)
[2022-11-18] MEDS: QUETIAPINE 25 MG TABLET PO ×2 (08:37→21:40)
[2022-11-18] MEDS: SODIUM CHLORIDE 0.9 % (FLUSH) 10 ML SYRINGE 5 ML IVF (10:51)
[2022-11-18] MEDS: 5 % DEXTROSE IN LAC RINGER'S 1,000 ML 100 ML IV (11:23)
--- NOTE | 2022-11-18 13:50 | P.IMPN_ITS ---
Progress Note: A&P Assessment and plan (1) Closed fracture of left hip: Problem details: Right bipolar hemiarthroplasty on 11/16/2022, Dr. Graf Status: Acute Assessment and Plan: She continues to not participate in physical therapy or occupational therapy efforts. As such she is not a candidate for transitional care services for rehabilitation. Will need to clarify whether not the [facility] where she has resided here to for is able to meet her current needs. If they are able to meet her current needs than at time of discharge she would return to the [facility] in [place], [place]. If they are not able to meet her current needs, will need to consider residential status and placement. (2) Alzheimer's dementia with agitation: Problem details: Nonverbal. Does not take direction for PT/OT this am. Started shaking with interaction (like previously noted). Goal - ensure adequate pain control and antianxiety. She has PO tylenol, celebrex - PO oxy, IV dilaudid. we need to ice and reposition. PO seroquel and IV zyprexa for agitation. avoid benzos. delirium is likely unavoidable. Status: Acute Assessment and Plan: I reviewed with the patient's son, Kenneth, the problem with the patient's disposition at this juncture. He would like clarification as to whether not the [facility] is able to continue to care for his mother. I also discussed with Kenneth that her dementia seems so evolved and her condition so deteriorated that she might in fact qualify for hospice services. I asked if he would be able the consider this with his other family members and make decisions as to whether not they want to possibly change the paradigm of care to reflect comfort measures only. (3) Seizure disorder: Problem details: Patient has been having drop attacks thought possibly due to seizures. Had an EEG done in August 2022 which suggested seizure activity so she is on Depakote. Taking PO meds on 11/17/22 Status: Acute Plan 1. I am unable to engage in any meaningful dialogue with the patient. 2. I attempted calling the patient's daughter, Elizabeth Tilley, cell phone number [phone]. I called a couple of times during the course the day. I allowed the phone during over 10 times each time. There was no answer. There was no voicemail options. 3. I called the patient's son, Kenneth Stephenson, and initially there was no answer but there was a voicemail service and I left a voicemail for him to call me back. He did not return my call. I did call later on once again, cell phone number [phone], and I did reach him. We spoke for a good 5-7 minutes. I updated him on his mother's condition. He wishes to obtain clarification in regard to whether not the [facility] might be able to except her back and continue to care for her. He seems inclined to consider the possibility of palliative measures hereafter, including the possibility of hospice services. I did ask him to discuss this with other family members and that we would talk about it more in the near future. 4. Continue with current supportive efforts. Time Spent With Patient Total time spent: 30 minutes Subjective Time Seen by Provider: 08:00 Date Seen: 11/18/22 Interval history: Daily Progress Note - Hospital Medicine Day #: 4 Postop day #2 Right hip cemented bipolar hemiarthroplasty CC: Right hip fracture, status post fall, severe dementia 72-year-old woman with severe rapidly evolving dementia underwent right hip cemented bipolar hemiarthroplasty after sustaining a right hip fracture status post fall. For the most part she is nonverbal. This is not new. This is related to her underlying severe, rapidly evolving dementia. She is comfortable when were not trying to move her. She becomes more uncomfortable and agitated when we try to move her. Awake at times. Not able to express her needs or desires. All her needs and desires are anticipated. Needs assist with 5 of 6 activities of daily living, still able to feed self after food prep and setup although does need cuing here in the hospital. Exam Narrative: Exam Narrative: When I 1st see her she is asleep. Later when I see her she is awake and sitting up in the chair. Does not verbalize. Sitting in the chair undisturbed she appears comfortable and in no acute distress. When awake she seems alert, but oriented to self at best. Lungs are clear to auscultation. Heart tones with regular rhythm. Abdomen with active bowel sounds, soft, nontender. Const: Vital Signs, click to edit/add: Vital Signs - 24 hr 11/17/22 15:20 11/17/22 15:53 11/17/22 15:20 Temperature 99.2 F Pulse Rate [Pulse Oximeter] 95 95 Respiratory Rate 14 Blood Pressure [Le ft Arm] 117/72 Pulse Oximetry 97 97 Oxygen Delivery Me thod Nasal Cannula Nasal Cannula Oxygen Flow Rate 1 1 11/17/22 21:00 11/17/22 22:32 11/17/22 22:32 Temperature 98.8 F Pulse Rate [Pulse Oximeter] 86 86 Respiratory Rate 16 16 16 Blood Pressure [Le ft Arm] 123/77 Pulse Oximetry 95 95 Oxygen Delivery Me thod Nasal Cannula Nasal Cannula Oxygen Flow Rate 2 2 11/18/22 00:00 11/18/22 03:00 11/18/22 07:00 Temperature 99.3 F 99.3 F Pulse Rate [Pulse Oximeter] 89 81 95 Respiratory Rate 16 16 Blood Pressure [Le ft Arm] 126/71 126/71 Pulse Oximetry 95 97 Oxygen Delivery Me thod Nasal Cannula Nasal Cannula Oxygen Flow Rate 2 1 11/18/22 07:00 11/18/22 07:00 11/18/22 11:00 Temperature 99.6 F 98.1 F Pulse Rate [Pulse Oximeter] 95 73 Respiratory Rate 16 16 12 Blood Pressure [Le ft Arm] 120/68 104/78 Pulse Oximetry 96 96 97 Oxygen Delivery Me thod Room Air Room Air Room Air Oxygen Flow Rate Documenting provider has reviewed patient's vital signs: yes Labs Labs: Laboratory Results - last 24 hr 11/18/22 11/18/22 05:49 05:49 WBC 11.88 H RBC 3.59 L Hgb 11.1 L Hct 33.7 MCV 94 MCH 31 MCHC 33 Plt Count 168 Sodium 143 Potassium 3.3 L BUN 8 Creatinine 0.6 Estimated Creat Clear 48.30 Estimated GFR 96
--- NOTE | 2022-11-18 19:16 | PC.NURSE ---
Nursing Care Hours: [id number] Pt this shift asleep most of day. Agitated with brief changes, cursing and stated I will kill you. Once flat on back or in chair, pt calm and quickly back to sleep. Oxycodone given per eMAR for pain. Ice applied. Bandage CDI, minimal swelling, pedal pulses equal and strong. Assisted with lunch and dinner, taking pills crushed in applesauce. Afebrile. Altman patent, u/o with sediment. BMx2.
[2022-11-18] MEDS: DIVALPROEX DELAYED RELEASE 250 MG TABLET 500 MG PO (21:38)
[2022-11-18] MEDS: MIRTAZAPINE 15 MG TABLET 45 MG PO (21:38)
[2022-11-18] MEDS: DONEPEZIL 5 MG TABLET PO (21:38)
[2022-11-18] MEDS: LACTATED RINGERS 1000 ML 500 ML IV (23:46)
[2022-11-19 03:00] VITALS: BP 117/68; PULSE 83; RESP 16; TEMP 36.3; O2SAT 95
[2022-11-19] MEDS: 5 % DEXTROSE IN LAC RINGER'S 1,000 ML 100 ML IV ×2 (04:50→14:54)
--- NOTE | 2022-11-19 04:57 | PC.NURSE ---
[id number] Pt slept entire shift, up in chair when nurse arrived, moved pt to bed with ceiling lift, 2A, pt tolerated well. Pt able to wake up enough to take medications, crushed in apple sauce, encouraged pt to drink but pt unable to comprehend. IV to R AC leaked, new IV started in R wrist. 500cc LR bolus administered x1 for decreased urine output, pt urine output adaquate since. hinton in place, patent and draining. Pt appeared comfortable for entire shift, turn and repo q2-3 hours while in bed, tolerated activity. Ice applied to L hip, dressing C/D/I. TEDS and SCD's in place. No N/V.
[2022-11-19 06:32] LABS: Hematocrit 31.8 % (33.0-51.0); Hemoglobin* 10.4 gm/dL (12.0-16.0); Mean Corpuscular HGB Conc 33 gm/dL (32-36); Mean Corpuscular Hemoglobin 31 pg (26-34); Mean Corpuscular Volume 95 fL (80-100); Platelet Count* 198 K/uL (140-440); Red Blood Count 3.35 m/uL (4.00-5.20); White Blood Count* 10.26 K/uL (4.50-11.00)
[2022-11-19 06:43] LABS: Potassium* 3.3 mmol/L (3.6-5.1); Sodium* 142 mmol/L (135-149)
[2022-11-19 06:46] LABS: Creatinine* 0.7 mg/dL (0.5-1.5); Estimated Glomerular Filt Rate 92 ml/min
[2022-11-19 06:47] LABS: Blood Urea Nitrogen* 10 mg/dL (7-30)
[2022-11-19 06:49] LABS: Slide Review Reflex No
[2022-11-19 07:00] VITALS: BP 157/82; PULSE 103; RESP 16; TEMP 36.6; O2SAT 96
[2022-11-19] MEDS: OXYCODONE 5 MG TABLET PO ×2 (08:40→20:20)
[2022-11-19] MEDS: POTASSIUM CHLORIDE 10 MEQ CAPSULE ER 20 MEQ PO ×2 (08:40→19:06)
[2022-11-19] MEDS: CELECOXIB 200 MG CAPSULE PO (08:40)
[2022-11-19] MEDS: OMEPRAZOLE 20 MG CAPSULE DR PO (08:40)
[2022-11-19] MEDS: RIVAROXABAN 10 MG TABLET PO (08:41)
[2022-11-19] MEDS: FLUOXETINE HCL 20 MG CAPSULE PO (08:41)
[2022-11-19] MEDS: MEMANTINE HCL 10 MG TABLET PO (08:41)
[2022-11-19 11:00] VITALS: BP 136/82; PULSE 88; RESP 12; TEMP 37; O2SAT 95
[2022-11-19] MEDS: ACETAMINOPHEN 325 MG TABLET 650 MG PO ×2 (12:29→19:06)
[2022-11-19] MEDS: QUETIAPINE 25 MG TABLET PO ×2 (12:30→20:53)
[2022-11-19 15:00] VITALS: BP 108/79; PULSE 83; RESP 16; TEMP 36.9; O2SAT 95
--- NOTE | 2022-11-19 15:21 | PM.IMPN1 ---
Progress Note: A&P Assessment and plan (1) Closed fracture of left hip: Problem details: Right bipolar hemiarthroplasty on 11/16/2022, Dr. Graf Status: Acute Assessment and Plan: She may weightbear but is not weight-bearing due to being rather sleepy. As I visit with her son, Kenneth, he indicates that she had been sleeping long periods of time before hospitalization as well. (2) Alzheimer's dementia with agitation: Problem details: Nonverbal. Does not take direction for PT/OT this am. Started shaking with interaction (like previously noted). Goal - ensure adequate pain control and antianxiety. She has PO tylenol, celebrex - PO oxy, IV dilaudid. we need to ice and reposition. PO seroquel and IV zyprexa for agitation. avoid benzos. delirium is likely unavoidable. Status: Acute Assessment and Plan: No obvious agitation while here in the hospital. Given her profound somnolence the question is whether not she is having psychomotor retardation delirium. (3) Seizure disorder: Problem details: Patient has been having drop attacks thought possibly due to seizures. Had an EEG done in August 2022 which suggested seizure activity so she is on Depakote. Taking PO meds on 11/17/22 Status: Acute Assessment and Plan: Seemingly well controlled. Plan 1. Reviewed impression with patient's and her son, Kenneth. 2. Continue with current supportive efforts, including IV fluid support for now. 3. Did discuss with her son, Kenneth, possibility of discontinuing IV fluids support at some point in the near future, perhaps 1-2 days, if her condition is not improving. He is agreeable to wait this out. He is agreeable to consider palliative and hospice interventions should her condition not improve over the next 1-2 days. Time Spent With Patient Total time spent: 70 minutes Subjective Time Seen by Provider: 08:00 Date Seen: 11/19/22 Interval history: Daily Progress Note - Hospital Medicine Day #: 5 Postop day # 3 Right hip cemented bipolar hemiarthroplasty CC: Right hip fracture, status post fall, severe dementia 72-year-old woman with severe, rapidly evolving dementia underwent right hip cemented bipolar hemiarthroplasty after sustaining a right hip fracture status post fall. For the most part she is nonverbal. This is not new. This is related to her underlying severe, rapidly evolving dementia. She is comfortable when were not trying to move her. She becomes more uncomfortable and agitated when we try to move her. Awake at times. Not able to express her needs or desires. All her needs and desires are anticipated. Needs assist with all 6 of 6 activities of daily living, including she needs assistance with eating and drinking. Exam Narrative: Exam Narrative: Appears comfortable and in no acute distress. When I 1st examined her in the morning she is asleep in her bed. When I examine her later in the morning she is sitting upright in the chair beside her bed, again asleep. As I am visiting with her son, Kenneth, who is visiting her, she awakens. It is unclear she recognizes her son. Her son ask her if she is interested in eating or drinking which she states she has. She does sip out of a straw and will take very small bites of diced peaches. No cough or aspiration. Lungs are clear to auscultation. Heart tones with regular rhythm. Abdomen with active bowel sounds, soft, nontender. Extremities without edema. No obvious focal motor neurologic deficits. Skin is warm, dry, intact. No icterus, jaundice, petechiae, or rashes. Const: Vital Signs, click to edit/add: Vital Signs - 24 hr 11/18/22 15:00 11/18/22 15:00 11/18/22 15:00 Temperature 98.3 F Pulse Rate [Left D orsalis Pedis] Pulse Rate [Pulse Oximeter] 73 93 Respiratory Rate 12 12 16 Blood Pressure [Le ft Arm] 124/78 Pulse Oximetry 94 97 Oxygen Delivery Me thod Room Air Room Air Oxygen Flow Rate 11/18/22 19:00 11/18/22 23:00 11/18/22 23:00 Temperature 98.3 F 97.9 F Pulse Rate [Left D orsalis Pedis] Pulse Rate [Pulse Oximeter] 115 H 77 Respiratory Rate 14 14 Blood Pressure [Le ft Arm] 130/96 H 122/52 L Pulse Oximetry 94 94 94 Oxygen Delivery Me thod Room Air Room Air Room Air Oxygen Flow Rate 0 11/19/22 03:00 11/19/22 07:00 11/19/22 07:00 Temperature 97.4 F L Pulse Rate [Left D orsalis Pedis] Pulse Rate [Pulse Oximeter] 83 103 H Respiratory Rate 16 16 16 Blood Pressure [Le ft Arm] 117/68 Pulse Oximetry 95 96 Oxygen Delivery Me thod Room Air Room Air Oxygen Flow Rate 0 11/19/22 07:00 Temperature 98 F Pulse Rate [Left D orsalis Pedis] 103 H Pulse Rate [Pulse Oximeter] Respiratory Rate 16 Blood Pressure [Le ft Arm] 157/82 H Pulse Oximetry 96 Oxygen Delivery Me thod Room Air Oxygen Flow Rate Documenting provider has reviewed patient's vital signs: yes Labs Labs: Laboratory Results - last 24 hr 11/19/22 11/19/22 06:05 06:05 WBC 10.26 RBC 3.35 L Hgb 10.4 L Hct 31.8 L MCV 95 MCH 31 MCHC 33 Plt Count 198 Sodium 142 Potassium 3.3 L BUN 10 Creatinine 0.7 Estimated Creat Clear 48.30 Estimated GFR 92
--- NOTE | 2022-11-19 19:39 | PC.NURSE ---
Nursing Care Hours: [id number] Pt this shift calm and cooperative with cares. Pain meds given per eMAR d/t elevated BP and pulse indicating possible pain, and for comfort prior to transfer, pt tolerated brief change well. Up to chair for rest of the day, assisted with shifting weight. Pt slept most of the day, difficulty waking up for breakfast. Vaccinator needed to vigorously shake and state pt name loudly to wake pt up for noon meds. Ate about 50% of lunch and not accepting dinner d/t fatigue. Pt is taking little oral fluids, has low u/o in Altman. Hodan with sediment. No BM this shift. Bandage CDI, pedal pulses strong. Family coming in two at a time to visit with pt. Occasionally pt would wake up and smile and verbally respond but would fall asleep shortly after.
[2022-11-19 20:43] VITALS: BP 108/87; PULSE 102; RESP 16; TEMP 37.5; O2SAT 97
[2022-11-19] MEDS: DIVALPROEX DELAYED RELEASE 250 MG TABLET 500 MG PO (20:53)
[2022-11-19] MEDS: MIRTAZAPINE 15 MG TABLET 45 MG PO (20:53)
[2022-11-19] MEDS: DONEPEZIL 5 MG TABLET PO (20:53)
--- NOTE | 2022-11-19 22:41 | PC.NURSE ---
Shift [id number]- Patient is up to chair this evening. She is moved back to bed. She is sleepy between cares, but rousable. Family at bedside and supportive. PRN pain medication given prior to movement. She speaks in short sentences. Active ice to hip. She is positioned with pillows for offloading.
[2022-11-19 23:00] VITALS: BP 131/90; PULSE 97; RESP 16; TEMP 37.2; O2SAT 98
[2022-11-20] VITALS (7 sets, daily range): BP systolic 85–126; BP diastolic 57–91; PULSE 72–95; RESP 12–16; TEMP 36.8–37.4; O2SAT 96–98
[2022-11-20] MEDS: ACETAMINOPHEN 325 MG TABLET 650 MG PO ×4 (00:07→17:56)
[2022-11-20] MEDS: 5 % DEXTROSE IN LAC RINGER'S 1,000 ML 100 ML IV ×3 (00:48→21:08)
--- NOTE | 2022-11-20 06:26 | PC.NURSE ---
Shift note: Pt has been sleeping very well. Vital signs has been stable. Urine appears cloudy and concentrated. Did not show any sign of discomfort.
[2022-11-20 07:10] LABS: Magnesium* 1.8 mg/dL (1.5-2.6)
[2022-11-20 07:11] LABS: Potassium* 3.6 mmol/L (3.6-5.1)
[2022-11-20] MEDS: POTASSIUM CHLORIDE 10 MEQ CAPSULE ER 20 MEQ PO (07:50)
[2022-11-20 08:19] LABS: Albumin* 2.3 g/dL (3.3-5.0)
[2022-11-20 08:22] LABS: Cholesterol* 127 mg/dL (90-199)
[2022-11-20] MEDS: RIVAROXABAN 10 MG TABLET PO (09:29)
[2022-11-20] MEDS: SENNOSIDES 1 TAB TABLET 2 TAB PO ×2 (09:29→21:06)
[2022-11-20] MEDS: OMEPRAZOLE 20 MG CAPSULE DR PO (09:29)
[2022-11-20] MEDS: QUETIAPINE 25 MG TABLET PO ×2 (09:29→21:07)
[2022-11-20] MEDS: CELECOXIB 200 MG CAPSULE PO (09:29)
[2022-11-20] MEDS: FLUOXETINE HCL 20 MG CAPSULE PO (09:29)
[2022-11-20] MEDS: MEMANTINE HCL 10 MG TABLET PO (09:29)
--- NOTE | 2022-11-20 13:46 | PM.IMPN1 ---
Progress Note: A&P Assessment and plan (1) Closed fracture of left hip: Problem details: Right bipolar hemiarthroplasty on 11/16/2022, Dr. Graf Status: Acute (2) Alzheimer's dementia with agitation: Problem details: Nonverbal. Does not take direction for PT/OT this am. Started shaking with interaction (like previously noted). Goal - ensure adequate pain control and antianxiety. She has PO tylenol, celebrex - PO oxy, IV dilaudid. we need to ice and reposition. PO seroquel and IV zyprexa for agitation. avoid benzos. delirium is likely unavoidable. Status: Acute (3) Seizure disorder: Problem details: Patient has been having drop attacks thought possibly due to seizures. Had an EEG done in August 2022 which suggested seizure activity so she is on Depakote. Taking PO meds on 11/17/22 Status: Acute (4) Frequent falls: Status: Acute (5) Protein calorie malnutrition: Status: Acute (6) Hypokalemia: Status: Acute Plan 1. Reviewed my impression with the patient and her family members. Answered their questions. 2. Family desires to continue with IV fluids for now and see how their mother or sister response to ongoing efforts. 3. I asked them to consider making a decision sometime in the next 24 hours regarding whether or not to continue the current level of care, deescalate level of care, or escalate level of care. They antegrade understanding and desire to care this out. 4. Continue with current supportive efforts for now Time Spent With Patient Total time spent: 40 minutes Subjective Time Seen by Provider: 11:30 Date Seen: 11/20/22 Interval history: Daily Progress Note - Hospital Medicine Day #: 6 Postop day # 4 Right hip cemented bipolar hemiarthroplasty CC: Right hip fracture, status post fall, severe dementia 72-year-old woman with severe, rapidly evolving dementia underwent right hip cemented bipolar hemiarthroplasty after sustaining a right hip fracture status post fall. For the most part she is nonverbal. This is not new. This is related to her underlying severe, rapidly evolving dementia. She is comfortable when were not trying to move her. She becomes more uncomfortable and sometimes even agitated when we try to move her. Awake at times. Not able to express her needs or desires. All her needs and desires are anticipated. Needs assist with all 6 of 6 activities of daily living, including she needs assistance with eating and drinking. I meet with the patient's son, Kenneth, the patient's stepdaughter, and I believe the patient has 2 brothers today. We reviewed the patient's status, trajectory of recovery, and discuss their are hopes for future care. In the course of this conversation the family indicates that they believe the patient is a little more awake and interactive today than she has been the entire time she has been here in the hospital. The patient still requires assist with all ADLs. She seems a little more easily arousable. She seems to be eating and drinking a little better today than yesterday. Exam Narrative: Exam Narrative: She is asleep in her bed when I 1st see her this morning. Later when I see her she is asleep while sitting upright in her recliner chair at the side of the bed. She appears comfortable both times I examine her. It takes a fair amount to arouse her but I am able to do so by calling out her name and gently touching her hand. Her eyes open briefly and then her eyes shut again. Third time I see her late this morning was when the family was with her. Patient again is asleep. This time however she awakens spontaneously while the family is present and I am speaking with her family. She mumble some nonsensical words and then falls asleep again. IV fluids running at 100 mL/hour. IV insertion site appears clean and dry and stable. Lungs are clear to auscultation. Heart tones with regular rhythm. Abdomen with active bowel sounds, soft, nontender. Extremities without edema. Moves all 4 extremities spontaneously at times. Skin is warm, dry, intact. Const: Vital Signs, click to edit/add: Vital Signs - 24 hr 11/19/22 15:00 11/19/22 15:00 11/19/22 15:00 Temperature 98.5 F Pulse Rate [Left D orsalis Pedis] 83 Pulse Rate [Pulse Oximeter] 83 Respiratory Rate 16 16 16 Blood Pressure [Le ft Arm] 108/79 Pulse Oximetry 95 95 Oxygen Delivery Me thod Room Air Room Air Oxygen Flow Rate 11/19/22 20:43 11/19/22 23:00 11/19/22 23:00 Temperature 99.5 F Pulse Rate [Left D orsalis Pedis] 102 H Pulse Rate [Pulse Oximeter] Respiratory Rate 16 16 16 Blood Pressure [Le ft Arm] 108/87 Pulse Oximetry 97 98 Oxygen Delivery Me thod Room Air Room Air Oxygen Flow Rate 11/19/22 23:00 11/20/22 03:00 11/20/22 07:00 Temperature 99 F 98.4 F 98.3 F Pulse Rate [Left D orsalis Pedis] 97 80 Pulse Rate [Pulse Oximeter] 72 Respiratory Rate 16 16 12 Blood Pressure [Le ft Arm] 131/90 H 105/72 126/79 Pulse Oximetry 98 97 97 Oxygen Delivery Me thod Room Air Room Air Room Air Oxygen Flow Rate 0 0 11/20/22 07:00 11/20/22 07:00 11/20/22 11:48 Temperature 99.3 F Pulse Rate [Left D orsalis Pedis] Pulse Rate [Pulse Oximeter] 72 95 Respiratory Rate 12 12 14 Blood Pressure [Le ft Arm] 85/66 L Pulse Oximetry 97 98 Oxygen Delivery Me thod Room Air Room Air Oxygen Flow Rate 11/20/22 11:50 Temperature Pulse Rate [Left D orsalis Pedis] Pulse Rate [Pulse Oximeter] 89 Respiratory Rate Blood Pressure [Le ft Arm] 101/57 L Pulse Oximetry Oxygen Delivery Me thod Oxygen Flow Rate Documenting provider has reviewed patient's vital signs: yes Labs Labs: Laboratory Results - last 24 hr 11/20/22 05:45 Potassium 3.6 Magnesium 1.8 Albumin 2.3 L Cholesterol 127
--- NOTE | 2022-11-20 14:39 | PC.SOCIAL ---
Discharge Planning: SW met with dtr (Elizabeth) and son (Shen) this afternoon who indicate they would like to utilize hospice services for pt at time of discharge and would like information about placement for pt. Pt has been residing at [facility] in [place] for quite some time, and [facility] (Yessi) reports that pt may return there if she is mostly bed-bound and utilizing hospice services for end-of-life care. The following facilities also were contacted for availability: [facility] (one bed available), [facility] (left message), [facility] (no availability). Education provided to dtr and son regarding facilities and hospice. A list of hospice agencies was emailed to son at his request ([email or web address]) along with information about [facility] ($530/day). [facility] will continue to follow for d/c planning needs.
--- NOTE | 2022-11-20 18:49 | PC.NURSE ---
End of Shift; Patient pleasant and cooperative, arousable and disoriented. Patient vitally stable, lungs clear, BS WNL, IV running LR 5% dextrose @100. Patient ceiling lift to chair. Patient is mostly nonverbal but did deny pain once. Patient eating a few bites to 25% of each meal today. Patient has been sleeping on and off all day. Altman intact and draining. No BM wit this news writer. Patient takes meds crushed with apple sauce. Family in visiting with patient a couple times today.
[2022-11-20] MEDS: MIRTAZAPINE 15 MG TABLET 45 MG PO (21:06)
[2022-11-20] MEDS: DONEPEZIL 5 MG TABLET PO (21:07)
[2022-11-20] MEDS: DIVALPROEX DELAYED RELEASE 250 MG TABLET 500 MG PO (21:07)
[2022-11-20] MEDS: SODIUM CHLORIDE 0.9 % (FLUSH) 10 ML SYRINGE 5 ML IVF (21:09)
[2022-11-21] MEDS: ACETAMINOPHEN 325 MG TABLET 650 MG PO ×3 (00:52→13:00)
[2022-11-21 03:00] VITALS: PULSE 77; PULSE 93; RESP 16; TEMP 36.7; O2SAT 98
--- NOTE | 2022-11-21 06:34 | PC.NURSE ---
Shift note: Pt response with few words selected questions. Pt has been in bed throughout the bed. Assisted in turning and reposition. Had adequate sleep. Vitally stable. Urinary catheter is patent and draining yellowish urine with sediment.
[2022-11-21 07:00] VITALS: BP 123/78; PULSE 96; RESP 16; TEMP 36.7; O2SAT 96; O2SAT 98
[2022-11-21] MEDS: 5 % DEXTROSE IN LAC RINGER'S 1,000 ML 100 ML IV (08:10)
[2022-11-21] MEDS: OLANZapine 5 MG/ML inj IVP (09:20)
[2022-11-21] MEDS: SENNOSIDES 1 TAB TABLET 2 TAB PO (09:25)
[2022-11-21] MEDS: QUETIAPINE 25 MG TABLET PO ×2 (09:25→21:54)
[2022-11-21] MEDS: FLUOXETINE HCL 20 MG CAPSULE PO (09:25)
[2022-11-21] MEDS: CELECOXIB 200 MG CAPSULE PO (09:25)
[2022-11-21] MEDS: RIVAROXABAN 10 MG TABLET PO (09:25)
[2022-11-21] MEDS: OMEPRAZOLE 20 MG CAPSULE DR PO (09:25)
[2022-11-21] MEDS: MEMANTINE HCL 10 MG TABLET PO (09:25)
[2022-11-21 11:00] VITALS: BP 134/76; PULSE 61; PULSE 96; RESP 16; TEMP 36.7; O2SAT 96
[2022-11-21 15:00] VITALS: BP 142/91; PULSE 61; PULSE 96; PULSE 98; RESP 16; TEMP 36.7; O2SAT 96
--- NOTE | 2022-11-21 15:37 | PC.SOCIAL ---
Pt. will return to [facility] tomorrow via non-emergency ambulance. Pt. will be comfort cares and admitted to [facility], per family preference at 1:30-2pm tomorrow. Updated pt.'s son Shen at [phone].
--- NOTE | 2022-11-21 15:52 | P.IMPN_ITS ---
Progress Note: A&P Assessment and plan (1) Closed fracture of left hip: Problem details: Right bipolar hemiarthroplasty on 11/16/2022, Dr. Graf Status: Acute (2) Alzheimer's dementia with agitation: Problem details: Nonverbal. Does not take direction for PT/OT this am. Started shaking with interaction (like previously noted). Goal - ensure adequate pain control and antianxiety. She has PO tylenol, celebrex - PO oxy, IV dilaudid. we need to ice and reposition. PO seroquel and IV zyprexa for agitation. avoid benzos. delirium is likely unavoidable. Status: Acute (3) Seizure disorder: Problem details: Patient has been having drop attacks thought possibly due to seizures. Had an EEG done in August 2022 which suggested seizure activity so she is on Depakote. Taking PO meds on 11/17/22 Status: Acute (4) Frequent falls: Status: Acute (5) Protein calorie malnutrition: Status: Acute (6) Hypokalemia: Status: Acute (7) Postoperative delirium: Problem details: Psychomotor retardation, resolved on 11/21/2022. Status: Acute Plan 1. Reviewed with patient and stepdaughter. 2. Continue work with social media job titles to establish a safe discharge disposition plan. 3. Will benefit from hospice services. Patient's son and stepdaughter requesting the same for consultation. Time Spent With Patient Total time spent: 30 minutes Subjective Time Seen by Provider: 10:00 Date Seen: 11/21/22 Interval history: Daily Progress Note - Hospital Medicine Day #: 7 Postop day # 5 Right hip cemented bipolar hemiarthroplasty CC: Right hip fracture, status post fall, severe dementia 72-year-old woman with severe, rapidly evolving dementia underwent right hip cemented bipolar hemiarthroplasty after sustaining a right hip fracture status post fall. For the most part she is nonverbal. This is not new. This is related to her underlying severe, rapidly evolving dementia. Today she is much more awake. Still has dementia. Still has difficulties expressing her needs and wants. More interactive with environment around her. Eating and drinking what is offered to her, with help and support. Needs assist with all 6 of 6 activities of daily living, including she needs assistance with eating and drinking. I made today with her stepdaughter. I visit with her yesterday along with the patient's son, Kenneth. They have decided to proceed with hospice services. The [facility] indicates they were able to support this effort. Will see if we can try to make arrangements for transfer when the [facility] staff are ready to receive her, possibly by tomorrow I am told. Exam Narrative: Exam Narrative: More awake. She tracks me as I visit with her and move about the room. She interacts somewhat with her stepdaughter who is with her. She is responsive to her stepdaughter's interactions. Lungs remain clear to auscultation. Heart tones with regular rhythm. Abdomen soft, nontender. Active bowel sounds. Const: Vital Signs, click to edit/add: Vital Signs - 24 hr 11/20/22 19:00 11/20/22 23:00 11/20/22 23:00 Temperature 98.6 F 98.9 F Pulse Rate [Apical ] Pulse Rate [Left D orsalis Pedis] 85 77 Pulse Rate [Pulse Oximeter] 91 Respiratory Rate 14 14 14 Blood Pressure [Le ft Arm] 123/78 Pulse Oximetry 96 98 Oxygen Delivery Me thod Room Air Room Air Oxygen Flow Rate 0 11/20/22 23:00 11/21/22 03:00 11/21/22 07:00 Temperature 98.1 F 98.1 F Pulse Rate [Apical ] Pulse Rate [Left D orsalis Pedis] 77 Pulse Rate [Pulse Oximeter] 93 96 Respiratory Rate 14 16 16 Blood Pressure [Le ft Arm] 123/78 Pulse Oximetry 98 98 98 Oxygen Delivery Me thod Room Air Room Air Room Air Oxygen Flow Rate 0 0 0 11/21/22 07:00 11/21/22 07:00 11/21/22 11:00 Temperature 98.0 F Pulse Rate [Apical ] 61 Pulse Rate [Left D orsalis Pedis] Pulse Rate [Pulse Oximeter] 96 96 Respiratory Rate 16 16 16 Blood Pressure [Le ft Arm] 134/76 Pulse Oximetry 96 96 Oxygen Delivery Me thod Room Air Room Air Oxygen Flow Rate 0 0 Documenting provider has reviewed patient's vital signs: yes
[2022-11-21 19:00] VITALS: BP 142/86; PULSE 80; RESP 18; TEMP 36.8; O2SAT 98
[2022-11-21] MEDS: DIVALPROEX DELAYED RELEASE 250 MG TABLET 500 MG PO (21:53)
[2022-11-21] MEDS: DONEPEZIL 5 MG TABLET PO (21:54)
[2022-11-21] MEDS: SODIUM CHLORIDE 0.9 % (FLUSH) 10 ML SYRINGE 5 ML IVF (21:54)
[2022-11-21] MEDS: MIRTAZAPINE 15 MG TABLET 45 MG PO (21:54)
[2022-11-21 23:00] VITALS: BP 141/81; PULSE 80; RESP 18; O2SAT 95
[2022-11-22] MEDS: ACETAMINOPHEN 325 MG TABLET 650 MG PO ×2 (00:54→06:41)
[2022-11-22 03:00] VITALS: PULSE 72; RESP 16; TEMP 36.7; O2SAT 98
--- NOTE | 2022-11-22 07:00 | PC.NURSE ---
?END OF SHIFT NOTE: PT PLEASANTLY DEMENTED. COOPERATIVE WITH CARES. DENIES?PAIN. PT RAMBLES ON AND DOES NOT ALWAYS ANSWER QUESTIONS APPROPRIATELY. 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 VSS ON RA; AFEBRILE. BED ALARM ON AND CALL LIGHT WITHIN PT?S REACH. BANUELOS PATENT, DRAINING PALE YELLOW URINE.
[2022-11-22 08:30] VITALS: BP 140/102; PULSE 78; RESP 18; TEMP 37.1; O2SAT 95; O2SAT 96
[2022-11-22] MEDS: QUETIAPINE 25 MG TABLET PO (08:45)
[2022-11-22] MEDS: OXYCODONE 5 MG TABLET PO (08:45)
[2022-11-22] MEDS: CELECOXIB 200 MG CAPSULE PO (08:45)
[2022-11-22] MEDS: OMEPRAZOLE 20 MG CAPSULE DR PO (08:45)
[2022-11-22] MEDS: MEMANTINE HCL 10 MG TABLET PO (08:45)
[2022-11-22] MEDS: RIVAROXABAN 10 MG TABLET PO (08:45)
[2022-11-22] MEDS: FLUOXETINE HCL 20 MG CAPSULE PO (08:45)
[2022-11-22 11:00] VITALS: BP 106/59; PULSE 73; RESP 18; TEMP 36.8; O2SAT 98
[2022-11-22 11:55] VITALS: BP 106/59; PULSE 73; RESP 18; TEMP 36.8
--- NOTE | 2022-11-22 12:06 | PC.NURSE ---
shift note: pt has garble speech.pt responds to name but is unable to state , place or time. pt unable to rate pain but was leaning forward in chair and hollering this a.m while holding lt l/e. Pt medicated with 10 mg oxycodone this a.m with relief. pt appeared resting and comfortable when assessed within 1 hr after pain given. No IV on DC. Hinton removed intact @ 1050. 350cc clr urine in cath bag at time of dc of hinton. sacral drsg intact covering small abrasion like wound to sacrum. LS clr. pt unable to perform IS due to dementia. lt thigh drsg c/d/i. PP+ bilat. Pt ceiling lift for transfers. Pt needing to be fed meals. Nurse to nurse attempted via phone with no answer from receiving facility.
--- NOTE | 2022-11-22 15:11 | PM.DS1 ---
DS: Providers Provider Time Seen by Provider: 07:30 Date Seen: 11/22/22 Date of admission: 11/15/22 20:06 Primary care physician: Mariah De La Rosa MD Admitting Clinician: Rios Ríos MD Consults: 11/15/22 20:16 Consult to [employer] [CONS] Routine Comment: Reason for Consult:: Discharge Planning Needs 11/15/22 22:57 Consult to Occupational Therapy [CONS] Routine Comment: Reason(s) for OT Consult:: Difficulty Managing ADLs Any Restrictions?:: Non Wt Bearing Consult to Physical Therapy [CONS] Routine Comment: Reason(s) for PT Consult:: Pain Any Restrictions?:: Non Wt Bearing 11/16/22 17:08 Consult to Occupational Therapy [CONS] Routine Comment: Reason(s) for OT Consult:: Evaluate and Treat Any Restrictions?:: See Comment Comment: evaluate and treat Consult to Physical Therapy [CONS] Routine Comment: Reason(s) for PT Consult:: Evaluate and Treat Any Restrictions?:: See Comment Consult to [employer] [CONS] Routine Comment: Reason for Consult:: Discharge Planning Needs Attending Physician on discharge: Ugo Martinez MD Date of Discharge: 11/22/22 DS: Diagnosis Discharge Diagnosis (1) Closed fracture of left hip: Status: Acute Problem details: Right bipolar hemiarthroplasty on 11/16/2022, Dr. Graf (2) Late onset Alzheimer dementia: Status: Acute Problem details: 11/23/2022: FAST 7A, PPS 30%, needs assist with all 6/6 ADLs, unintentional weight loss (3) Postoperative delirium: Status: Acute Problem details: Psychomotor retardation, resolved on 11/21/2022. (4) Protein calorie malnutrition: Status: Acute (5) Frequent falls: Status: Acute (6) Hypokalemia: Status: Acute (7) Seizure disorder: Status: Acute Problem details: Patient has been having drop attacks thought possibly due to seizures. Had an EEG done in August 2022 which suggested seizure activity so she is on Depakote. Taking PO meds on 11/17/22 DS: Summary Hospital Course Hospital Course: 72-year-old woman with advanced dementia of Alzheimer's type, historically with agitation but better controlled with current medication regimen. She presented on 11/15/2022 after a fall and was found to have a femur fracture. She is brought to the OR and this was repaired the following day. Subsequently she developed psychomotor retardation delirium which she eventually resolves and she is closer to her baseline level of functioning. Her Alzheimer's dementia FAST score is 7A. Her PPS score is 30%. She requires assist with all 6 of 6 ADLs. Patient is referred for hospice services in the memory care unit that she resides in, the [place], [place]. Family agrees to this. Goal is to keep the patient comfortable. They request DNR DNI resuscitation status. Time Spent with Patient Time attestation: Total time spent providing and/or coordinating discharge services: Time spent: Less than 30 minutes Exam Narrative: Exam Narrative: More awake.? She tracks me as I visit with her and move about the room.? She interacts somewhat with her stepdaughter who is with her.? She is responsive to her stepdaughter's interactions. Lungs remain clear to auscultation.? Heart tones with regular rhythm.? Abdomen soft, nontender.? Active bowel sounds. Const: Vital Signs, click to edit/add: Vital Signs - 24 hr 11/21/22 19:00 11/21/22 23:00 11/21/22 23:00 Temperature 98.2 F Pulse Rate Pulse Rate [Apical ] Pulse Rate [Left D orsalis Pedis] Pulse Rate [Pulse Oximeter] 80 80 Respiratory Rate 18 18 18 Blood Pressure Blood Pressure [Le ft Arm] 142/86 H Blood Pressure [Ri ght Arm] Pulse Oximetry 98 95 Oxygen Delivery Me thod Room Air Room Air Oxygen Flow Rate 0 0 11/21/22 23:00 11/22/22 03:00 11/22/22 08:30 Temperature 98.0 F Pulse Rate Pulse Rate [Apical ] Pulse Rate [Left D orsalis Pedis] Pulse Rate [Pulse Oximeter] 80 72 Respiratory Rate 16 Blood Pressure Blood Pressure [Le ft Arm] 141/81 H Blood Pressure [Ri ght Arm] Pulse Oximetry 95 98 95 Oxygen Delivery Me thod Room Air Room Air Room Air Oxygen Flow Rate 0 0 11/22/22 08:30 11/22/22 11:00 11/22/22 11:55 Temperature 98.8 F 98.3 F 98.3 F Pulse Rate 73 Pulse Rate [Apical ] 73 Pulse Rate [Left D orsalis Pedis] 78 Pulse Rate [Pulse Oximeter] 73 Respiratory Rate 18 18 18 Blood Pressure 106/59 L Blood Pressure [Le ft Arm] 140/102 H Blood Pressure [Ri ght Arm] 106/59 L Pulse Oximetry 96 98 Oxygen Delivery Me thod Room Air Room Air Oxygen Flow Rate Documenting provider has reviewed patient's vital signs: yes Discharge Plan Discharge Disposition: Xfer [facility] Date of Admission: 11/15/22 20:06 Attending Provider on Discharge: Ugo Martinez Primary Care Provider: Mariah De La Rosa Condition: Stable Anticipated Discharge Date/Time: 11/22/22 11:00 Discharge Medications: New acetaminophen 325 mg tablet 650 mg PO QID Qty: 60 0RF quetiapine 25 mg Tablet 25 mg PO BID Qty: 30 1RF oxycodone 5 mg tablet 2.5 mg PO Q8H PRN (Reason: pain) Qty: 7 0RF aspirin 81 mg tablet,chewable 81 mg PO .Twice daily Qty: 60 2RF Rx Instructions: Stop this order upon completion of this 30-day course of treatment Continued divalproex 250 mg tablet extended release 24 hr 500 mg PO HS donepezil 5 mg tablet 5 mg PO HS cetirizine 5 mg tablet 5 mg PO DAILY clobetasol 0.05 % ointment 1 applic TOPICAL HS Desitin Rapid Relief 13 % cream 1 applic topical BID PRN fluoxetine 20 mg capsule 20 mg PO DAILY mirtazapine 45 mg tablet 45 mg PO HS alum-mag hydroxide-simeth [Advanced Antacid-Antigas] 200-200-20 mg/5 mL suspension 15 ml PO Q4H PRN memantine 10 mg tablet 10 mg PO DAILY omeprazole 20 mg capsule,delayed release(DR/EC) 20 mg PO BID sennosides-docusate sodium [Senna Plus] 8.6-50 mg tablet 1 tab-cap PO BID PRN Label Comments: Take 1 tablet by mouth twice a day as needed trazodone 50 mg tablet 25 mg PO HS ondansetron 4 mg tablet,disintegrating 4 mg PO DAILY Label Comments: 4mg po Daily at breakfast and 4mg po prn nausea Discontinued quetiapine 25 mg tablet 25 mg PO QHS quetiapine 25 mg tablet 37.5 mg PO DAILY acetaminophen 500 mg capsule 1,000 mg PO TID PRN Label Comments: Take 2 capsule by mouth three times a day as needed for pain , Max: 4g APAP/24hrs Discharge Orders: Discharge Order (Routine); Ordered 11/22/22 Ordered By: Ugo Martinez Additional Instructions: Needs assistance with all 6/6 activities of daily living, including transfers, incontinence cares, feeding. Activity Level: Weight Bearing as Tolerated Discharge Diet: Regular Follow Up Appointments: Mariah De La Rosa MD [Primary Care Provider] - [facility]: [facility] Inst[facility] Discharge Comments: Return appoint with Dr. Graf in 6 weeks. Orthopedic clinic. [phone] Wound Care: Sacral mepilex for sacral abrasion, change 2 times weekly, more often if needed, until resolution Admit to: Assisted Living Discharge Potential: Poor Length of Stay: >90 days Can use facility standing orders?: Yes Code Status: DNR/DNI Rehab Potential: Poor Hospice Evaluate and Admit: [facility] Hospice assessment and admission if appropriate - orders completed 11/22/2022 Orders are good >30 days: Yes Signature: Ugo Martinez
== END 2022-11-22 11:30 | DRG 522 ==
LOC: ED 19:13 → MEDSURG 20:03
PROVIDERS: Internal Medicine; Orthopaedic Surgery; Admitting Provider Family Medicine; Emergency Provider Family Medicine; PCP Family Medicine; Visit Provider Family Medicine
PROC: (CPT 27130; principal; 2022-11-16 14:15)
DX: S72.002A Fracture of unspecified part of neck of left femur, initial encounter for closed fracture (principal); E46 Unspecified protein-calorie malnutrition; F05 Delirium due to known physiological condition; F02.C11 Dementia in other diseases classified elsewhere, severe, with agitation; G30.1 Alzheimer's disease with late onset; E87.6 Hypokalemia; W19.XXXA Unspecified fall, initial encounter; Z68.20 Body mass index [BMI] 20.0-20.9, adult; G40.909 Epilepsy, unspecified, not intractable, without status epilepticus; I05.9 Rheumatic mitral valve disease, unspecified; J45.909 Unspecified asthma, uncomplicated; K21.9 Gastro-esophageal reflux disease without esophagitis; F41.9 Anxiety disorder, unspecified
CPT/HCPCS: 01210; 36415; 70450; 71045; 72170; 73501; 73700; 74176; 76000; 76942; 80048; 80076; 81001; 82040; 82150; 82465; 82565; 83735; 84132; 84295; 84520; 85025; 85027; 86140; 87086; 87502; 87634; 87635; 93005; 99100; 99285; A9270; C1776; C9113; J0330; J0690; J1100; J1170; J2250; J2270; J2370; J2405; J2704; J2795; J3010; J3490; J7120; S0166

== ENCOUNTER 2022-11-22 11:14 | Outpatient (CLI) | payer MEDICARE, OTHER, SELFPAY | END 2022-11-22 11:15 | disposition home or self-care (01) | LOC: AMB 11-23 12:20 | PROVIDERS: PCP Family Medicine; Visit Provider Family Medicine | DX: R41.82 Altered mental status, unspecified (principal) | CPT/HCPCS: A0425; A0428 ==